=== PATIENT | male | born 1935 | race Caucasian/White ===

== ENCOUNTER 2016-10-28 15:02 | Inpatient (IN) ==
--- NOTE | 2016-10-28 15:06 | Emergency Department Note ---
Disposition Clinical Impression: Community acquired pneumonia Disposition: Admitted As Inpatient Referrals: Rodrick Vázquez MD [Primary Care Provider] - Forms: ED Satisfaction Letter SOB HPI - General Chief Complaint: ED Shortness of Breath/Dyspnea Stated Complaint: shortness of breath Time Seen by Provider: 10/28/16 15:05 Source: patient, family, EMS Mode of arrival: EMS Nursing Notes Reviewed: Yes Vital Signs Reviewed: Yes - History of Present Illness Pt Subjective Complaint: shortness of breath, cough Onset (ago): day(s) (4) Context: recent illness Severity: mild Consistency/Duration: intermittent, gradually worsening Worsens with: nothing Known history of: COPD, recurrent pneumonia Associated symptoms: Reports: nausea/vomiting Treatment prior to arrival: none Cough present: Yes Cough Description: Voluntary Cough Frequency: Intermittent Sputum production: Yes Sputum Amount: Scant - Related Data Home Medications Medication Instructions Recorded Confirmed Aspirin [Adult Low Dose Aspirin EC] 81 mg PO DAILY 10/16/15 08/09/16 Atorvastatin [Lipitor] 40 mg PO HS 10/16/15 08/09/16 Insulin Glargine,Hum.rec.anlog 10 unit SQ HS 04/13/16 08/09/16 [Lantus Solostar] Gabapentin [Neurontin] 300 mg PO TID 06/12/16 08/09/16 Insulin ASPART [Novolog Flexpen] 5 - 10 unit SQ TIDAC 06/12/16 08/09/16 Lisinopril 2.5 mg PO DAILY 06/12/16 08/09/16 Meclizine HCl [Verticalm] 25 mg PO TID PRN 06/12/16 08/09/16 Omeprazole [PriLOSEC] 20 mg PO DAILY 06/12/16 08/09/16 Carvedilol 3.125 mg PO BID 08/09/16 08/09/16 Metformin [Glucophage] 1,000 mg PO BIDWM 08/09/16 08/09/16 Previous Rx's Medication Instructions Recorded Clopidogrel [Plavix] 75 mg PO DAILY #30 tablet 04/18/16 Benzonatate [Tessalon] 200 mg PO TID PRN #0 capsule 06/20/16 GuaiFENesin ER [Mucinex] 600 mg PO BID tbbp.12hr 06/20/16 Insulin DETEMIR [Levemir] 10 unit SQ HS [id number] 06/20/16 Ipratropium/Albuterol Neb [Duoneb] 3 ml IH QIDR inhsol 06/20/16 Polyethylene Glycol 3350 [MiraLAX] 17 gm PO DAILY powd.pack 06/20/16 Clindamycin [Cleocin] 300 mg PO Q8HR #0 capsule 08/19/16 Nystatin POWDER [Nystop] 1 appl TP TID bottle 08/19/16 Peg 3350/Na Sulf,Bicarb,Cl/KCl 4,000 ml PO ONCE #1 soln.recon 10/17/16 [Golytely Solution] Sennosides [Senna] 8.6 mg PO BID #14 tablet 10/17/16 Allergies Allergy/AdvReac Type Severity Reaction Status Date / Time Sulfa (Sulfonamide Allergy Rash Verified 04/13/16 10:53 Antibiotics) All systems ED: reviewed and negative except as stated. Constitutional: Reports: weakness Gastrointestinal: Reports: nausea Past Medical History - Past Medical History Source: patient, old records reviewed, obtained from family (son in law), nursing notes reviewed Medical history: Reports: arthritis, cancer, cardiomyopathy, CHF, COPD, coronary artery disease, CVA, diabetes, GERD, hyperlipidemia, hypertension, malignancy, myocardial infarction, osteoporosis, peripheral artery disease, renal disease, TIA, valvular heart disease, other Surgical history: Reports: angioplasty/stent, cancer surgery, coronary bypass ( CABG), orthopedic, other, ureteral stent, other Psychiatric history: Reports: anxiety, depression, other - Social History Smoking Status: Former smoker Smokeless Tobacco Status: No Alcohol use: Reports: none Drug use: Reports: none Physical Exam - General Limitations: physical limitation General appearance: alert, other (very frail appearing) - Head Head exam: atraumatic, normocephalic, normal inspection - Eye Eye exam: Present: normal appearance, PERRL, EOMI - ENT ENT exam: normal exam, normal oropharynx, mucous membranes moist - Neck Neck exam: Present: normal inspection, full ROM, trachea midline - Chest Chest inspection: Present: normal inspection, symmetric chest wall rise - Respiratory Respiratory exam: Present: prolonged expiratory phase (Mild rhonchi with cough) . Absent: accessory muscle use - Cardiovascular Cardiovascular exam: Present: regular rate, normal rhythm, normal heart sounds - Abdominal Exam Abdominal exam: Present: soft, Non-Tender. Absent: tenderness, distention, guarding, rebound, rigidity Course Vital Signs Temperature 99.2 F 10/28/16 15:27 Pulse Rate 107 10/28/16 15:27 Respiratory Rate 20 10/28/16 15:27 Blood Pressure 132/104 10/28/16 15:27 O2 Sat by Pulse Oximetry 95 10/28/16 15:27 Temperature 99.2 F 10/28/16 15:27 Pulse Rate 107 10/28/16 15:27 Respiratory Rate 20 10/28/16 15:50 Blood Pressure 132/104 10/28/16 15:27 O2 Sat by Pulse Oximetry 95 10/28/16 15:50 Oxygen Delivery Oxygen Delivery Room Air Shortness of Breath/Dyspnea - Differential Diagnosis Likely: acute exacerbation of chronic obstructive airways disease, congestive heart failure, pneumonia, asthma with exacerbation, pulmonary embolism - Medical Records Medical records reviewed: Yes I reviewed the patient's medical records. - Lab Data Lab results reviewed: Yes I reviewed the patient's lab results. Result diagrams: 10/28/16 15:20 10/28/16 15:20 Lab Results 10/28/16 10/28/16 10/28/16 Range/Units 15:20 15:20 15:20 WBC 15.5 H (4.3-11.1) K/mcL RBC 4.01 L (4.19-5.50) M/mcL Hgb 11.8 L (12.9-16.9) g/dL Hct 35.4 L (37.5-50.1) % MCV 88.3 (83.0-100.0) fL MCH 29.4 (28.0-33.3) pg MCHC 33.3 (31.6-35.5) g/dL RDW 14.8 H (11.5-14.5) % Plt Count 415 H (140-400) K/mcL MPV 10.7 (9.4-12.4) fL Immature Gran % 0.7 (0-4) % Seg Neutrophils % 84.7 % Lymphocytes % 5.0 % Monocytes % 4.8 % Eosinophils % 4.5 % Basophils % 0.3 % Neutrophils # 13.1 H (1.6-8.9) K/mcL Lymphocytes # 0.8 (0.6-4.6) K/mcL Monocytes # 0.7 (0.0-1.3) K/mcL Eosinophils # 0.7 H (0.0-0.6) K/mcL Basophils # 0.0 (0.0-0.2) K/mcL Sodium 136 (136-145) mEq/L Potassium 4.8 H (3.5-4.5) mEq/L Chloride 103 (98-109) mEq/L Carbon Dioxide 17 L (19-29) mEq/L BUN 41 H (8-26) mg/dL Creatinine 1.46 H (0.72-1.25) mg/dL Est GFR ( Amer) 56 L (> 60) Est GFR (Non-Af Amer) 46 L (> 60) BUN/Creatinine Ratio 28 H (6-26) Glucose 257 H (70-99) mg/dL Calculated Osmolality 301 H (280-300) Calcium 10.1 (8.6-10.8) mg/dL Troponin I 0.03 (0-0.03) ng/mL B-Natriuretic Peptide (0-100) pg/mL 10/28/16 Range/Units 15:20 WBC (4.3-11.1) K/mcL RBC (4.19-5.50) M/mcL Hgb (12.9-16.9) g/dL Hct (37.5-50.1) % MCV (83.0-100.0) fL MCH (28.0-33.3) pg MCHC (31.6-35.5) g/dL RDW (11.5-14.5) % Plt Count (140-400) K/mcL MPV (9.4-12.4) fL Immature Gran % (0-4) % Seg Neutrophils % % Lymphocytes % % Monocytes % % Eosinophils % % Basophils % % Neutrophils # (1.6-8.9) K/mcL Lymphocytes # (0.6-4.6) K/mcL Monocytes # (0.0-1.3) K/mcL Eosinophils # (0.0-0.6) K/mcL Basophils # (0.0-0.2) K/mcL Sodium (136-145) mEq/L Potassium (3.5-4.5) mEq/L Chloride (98-109) mEq/L Carbon Dioxide (19-29) mEq/L BUN (8-26) mg/dL Creatinine (0.72-1.25) mg/dL Est GFR ( Amer) (> 60) Est GFR (Non-Af Amer) (> 60) BUN/Creatinine Ratio (6-26) Glucose (70-99) mg/dL Calculated Osmolality (280-300) Calcium (8.6-10.8) mg/dL Troponin I (0-0.03) ng/mL B-Natriuretic Peptide 163 H (0-100) pg/mL - Radiology Data Radiology results reviewed: Yes I reviewed the patient's radiology results. - EKG Data EKG attestation: Yes I reviewed and interpreted this EKG. EKG shows normal: Reports: sinus rhythm Rate: Reports: tachycardia (100) Rhythm: Reports: NSR, PVC's Heart block present: Reports: 1st Degree
[2016-10-28 15:30] LABS: Basophils % 0.3 %; Eosinophils # 0.7 K/mcL (0.0-0.6); Eosinophils % 4.5 %; Hematocrit 35.4 % (37.5-50.1); Hemoglobin 11.8 g/dL (12.9-16.9); Immature Granulocytes % 0.7 % (0-4); Lymphocytes # 0.8 K/mcL (0.6-4.6); Mean Corpuscular HGB Conc 33.3 g/dL (31.6-35.5); Mean Corpuscular Hemoglobin 29.4 pg (28.0-33.3); Mean Corpuscular Volume 88.3 fL (83.0-100.0); Mean Platelet Volume 10.7 fL (9.4-12.4); Monocytes # 0.7 K/mcL (0.0-1.3); Monocytes % 4.8 %; Neutrophils # 13.1 K/mcL (1.6-8.9); Platelet Count 415 K/mcL (140-400); Red Blood Count 4.01 M/mcL (4.19-5.50); Red Cell Distribution Width 14.8 % (11.5-14.5); Segmented Neutrophils % 84.7 %
[2016-10-28] MEDS ORDERED: Ondansetron 4 MG/2 ML VIAL IVP ONE (15:31)
[2016-10-28] MEDS ORDERED: Ipratropium/Albuterol Neb 3 ML IH ONE (15:31)
[2016-10-28 15:43] LABS: Calcium 10.1 mg/dL (8.6-10.8); Potassium 4.8 mEq/L (3.5-4.5)
[2016-10-28] MEDS ORDERED: Levofloxacin 750 MG/150 ML 750 MG/150 ML BAG IVPB ONE (16:12)
[2016-10-28] MEDS ORDERED: 0.9 % Sodium Chloride 1,000 ML IVC ONE (16:17)
[2016-10-28] MEDS ORDERED: 0.9 % Sodium Chloride 500 ML IVC ONE (17:12)
[2016-10-28] MEDS ORDERED: Naloxone 0.4 MG/ML INJ IVP PRN (21:49)
[2016-10-28] MEDS ORDERED: Ondansetron 4 MG/2 ML VIAL IVP PRN (21:49)
[2016-10-28] MEDS ORDERED: Albuterol 2.5 MG/3 ML NEBULIZER IH PRN (21:54)
[2016-10-28] MEDS ORDERED: Benzonatate 100 MG CAPSULE PO PRN (21:57)
[2016-10-28] MEDS ORDERED: Gabapentin 300 MG CAPSULE PO PRN (21:57)
--- NOTE | 2016-10-28 22:01 | Internal Med History&Physical ---
<Katie Campuzano - Last Filed: 10/29/16 00:40> Date of Encounter: 10/29/16 Time of Encounter: 21:00 Assessment and Plan (1) Sepsis Current visit: No Status: Acute 1 patient's been experiencing cough and shortness of breath for 4 days. He presented to the ER with tachycardic or low-grade temperature WBCs 15.5 Pneumonia on chest x-ray. Will obtain UA as well. Cultures obtained patient given 1500 of IV fluids in the ER 2 continue with gentle IV hydration overnight 3 obtain sputum culture 4 patient is a past history of MRSA in sputum will continue with Levaquin and vancomycin Qualifiers: Sepsis type: sepsis due to unspecified organism Qualified Code(s): A41.9 - Sepsis, unspecified organism (2) HAP (hospital-acquired pneumonia) Current visit: No Status: Acute 1 patient has had frequent episodes of pneumonia with hospitalizations. He presents with shortness of breath and SPO2 92% requiring oxygen. He has a recent history of positive sputum culture MRSA. Blood cultures are obtained we will obtain sputum cultures. Continue with Levaquin and vancomycin 2 continue with oxygen maintain SPO2 greater than 90% 3 bronchodilators as needed 4 continue with expectorants (3) Failure to thrive Current visit: Yes Status: Acute 1 patient appears frail deconditioned cachectic. Has poor appetite. We will consult dietary for supplementary recommendation 2 we will give gentle IV fluids overnight Qualifiers: Failure to thrive age range: in adult Qualified Code(s): R62.7 - Adult failure to thrive (4) Chronic systolic heart failure Current visit: No Status: Chronic 1 patient has history of systolic heart failure with EF 25%. No vascular congestion on x-ray-we will monitor for signs and symptoms of fluid overload 2 daily weights and monitor intake and output 3 low sodium diet (5) Coronary artery disease Current visit: No Status: Chronic 1Denies any chest pain continue with aspirin and lisinopril statin beta margarita 2 cardiac diet Qualifiers: Coronary Disease-Associated Artery/Lesion type: [place] artery [place] vs. transplanted heart: [place] heart Associated angina: without angina Qualified Code(s): I25.10 - Atherosclerotic heart disease of [place] coronary artery without angina pectoris (6) Diabetes mellitus Current visit: No Status: Chronic 1. According to family patients has not been taking his basal insulin due to poor oral intake. We will hold oral antibiotics for now. Accu-Cheks before meals and at bedtime with sliding scale insulin Qualifiers: Diabetes mellitus type: type 2 Diabetes mellitus complication status: with hyperglycemia Diabetes mellitus terminal system operator insulin use: with skilled nursing use Qualified Code(s): E11.65 - Type 2 diabetes mellitus with hyperglycemia; Z79.4 - buttermaker (current) use of insulin (7) History of urostomy Current visit: No Status: Chronic 1 patient has urostomy secondary to bladder cancer. We will obtain the urinalysis (8) Acute kidney injury superimposed on chronic kidney disease Current visit: No Status: Acute 1 patient has history of Ckd3. Creatinine seems to be 1-1.3 He appears his creatinine is slightly elevated 1.46 patient's intake will continue to monitor creatinine 2 GENTLE IV FLUID OVERNIGHT 3. Intake and output daily weights 4 avoid nephrotoxins renal dose antibiotics (9) DVT prophylaxis Current visit: No Status: Acute [facility] Internal Medicine - H&P: HPI Chief complaint: Cough, SOB Admitted From: Emergency Dept History of present illness: Mr. Herron is a 81 year old male past medical history of systolic heart failure CABG bladder cancer with urostomy hypertension diabetes COPD recurrent pneumonia renal disease TIAs. Currently the patient has been experiencing fatigue a cough with shortness of breath for approximately 4 days. He has had positive stress of pneumonia with most recent hospitalization in August that time he did have MRSA in his sputum. Patient denies any chest pain fevers chills nausea vomiting or diarrhea. He does report anorexia. Is brought to the ER for further workup and evaluation. Cardiovascular records lab work did reveal elevated white count 15.5 potassium is 4.8 creatinine 1.46 bicarbonate 17. Chest x-ray revealed patchy ACDs and retrocardiac left bases atelectasis or pneumonia which is new from prior x-ray. Patient's vital signs he was tachycardic heart rate of 104 low-grade temperature of 99.2 oxygen saturation 95 % howeverSPO2 drop 92%on 2 L nasal cannula Blood cultures were obtained patient was initiated Levaquin. He was admitted for further workup and evaluation. Upon assessment patient appears cachectic weak and frail. He does not appear to be in any respiratory distress at this time denies any chest pain or shortness of breath. Upon auscultation his lungs sounds are diminished he is hemodynamically stable at this time I reviewed this case with who agrees with plan Past Med Surg Social Fam HX - Past Medical History Medical history: arthritis, cancer, cardiomyopathy, CHF, COPD, coronary artery disease, CVA, diabetes, GERD, hyperlipidemia, hypertension, malignancy, myocardial infarction, osteoporosis, peripheral artery disease, renal disease, TIA, valvular heart disease, other Psychiatric history: anxiety, depression, other - Past Surgical History Surgical History: angioplasty/stent, cancer surgery, coronary bypass (CABG), orthopedic, other, ureteral stent, other - Social History Smoking Status: Former smoker Smokeless Tobacco Status: No Alcohol use: none Drug use: none - Family History Mother Family Member Ethnicity: Non- Living Status: Hx Family Cardiac Disorders: No Hx Family Respiratory Disorders: No Hx Family Cancer: No Hx Family GI Disorders: No Hx Family Endocrine Disorder: No Hx Family Neuromuscular Disorders: No Hx Family Neurologic Disorders: No Hx Family HEENT Disorders: No Hx Family Autoimmune Disorders: No Father Family Member Ethnicity: Non- Living Status: Hx Family Cardiac Disorders: Yes Hx Family Respiratory Disorders: No Hx Family Cancer: No Hx Family GI Disorders: No Hx Family Endocrine Disorder: No Hx Family Neuromuscular Disorders: No Hx Family Neurologic Disorders: No Hx Family HEENT Disorders: No Hx Family Autoimmune Disorders: No Internal Medicine - H&P: Meds Aspirin [Adult Low Dose Aspirin EC] 81 mg PO DAILY 10/16/15 [History] Atorvastatin [Lipitor] 40 mg PO HS 10/16/15 [History] Clopidogrel [Plavix] 75 mg PO DAILY #30 tablet 04/18/16 [Rx] Gabapentin [Neurontin] 300 mg PO TID PRN 06/12/16 [History] Insulin ASPART [Novolog Flexpen] 5 - 10 unit SQ TIDAC 06/12/16 [History] Lisinopril 2.5 mg PO DAILY 06/12/16 [History] Meclizine HCl [Verticalm] 25 mg PO TID PRN 06/12/16 [History] Omeprazole [PriLOSEC] 20 mg PO DAILY 06/12/16 [History] Benzonatate [Tessalon] 200 mg PO TID PRN #0 capsule 06/20/16 [Rx] Insulin DETEMIR [Levemir] 10 unit SQ HS [id number] 06/20/16 [Rx] Carvedilol 3.125 mg PO BID 08/09/16 [History] Metformin [Glucophage] 1,000 mg PO BIDWM 08/09/16 [History] GuaiFENesin ER [Mucinex] 600 mg PO BID PRN 10/28/16 [History] Polyethylene Glycol 3350 [MiraLAX] 17 gm PO DAILY PRN 10/28/16 [History] Promethazine [Phenergan] 25 mg PO Q8HR PRN 10/28/16 [History] Allergies Sulfa (Sulfonamide Antibiotics) Allergy (Verified 04/13/16 10:53) Rash All Systems PM: A 10-system review of systems was performed and is negative for pertinent findings except as documented above in the HPI. - Constitutional Constitutional: anorexia, fatigue, weight loss - Cardiovascular Cardiovascular ROS IM: no chest pain, no diaphoresis, no dyspnea, no lightheadedness, no palpitations, no syncope - Respiratory Respiratory: cough, dyspnea on exertion - Gastrointestinal Gastrointestinal: no abdominal pain, no diarrhea, no hematemesis, no hematochezia, no melena, no nausea, no vomiting - Musculoskeletal Musculoskeletal ROS IM: no numbness, no tingling - Neurological Neurological ROS: no confusion, no convulsions, no focal weakness, no numbness, no tingling, no tremor(s) - Constitutional Vitals: Temp Pulse Resp BP Pulse Ox 98.2 F 104 18 126/76 92 L 10/28/16 19:54 10/28/16 19:54 10/28/16 19:54 10/28/16 19:54 10/28/16 19:54 General appearance: Present: cachectic, A&O X 3, underweight - Head Head exam: Present: atraumatic, normocephalic - Neck Neck exam general surgery: Present: supple, trachea midline. Absent: lymphadenopathy - Respiratory Respiratory exam: Present: decreased breath sounds, CTAB. Absent: accessory muscle use, rales, rhonchi, wheezes - Cardiovascular Cardiovascular exam: Present: RRR, +S1, +S2. Absent: diastolic murmur, gallop, rubs, systolic murmur - GI/Abdominal GI/Abdominal exam: Present: normal bowel sounds, soft, no peritoneal signs. Absent: distended, tenderness - Extremities Exam Extremities exam: Present: warm, radial pulses palpable and symetrical. Absent : calf tenderness, cyanotic, pedal edema - Neurological Exam Neurological exam: Present: CN II-XII intact, oriented X3, no focal deficits. Absent: pronater drift, facial droop, speech deficit - Skin Skin exam: Present: dry, intact Internal Med - H&P Results - Labs CBC & Chem 7: 10/28/16 15:20 10/28/16 15:20 - EKG Data EKG comments: 10/29/16 00:16 - Diagnostic Studies Chest x-ray Additional comments: Per radiology read patchy opacty in the retrocardiac left base atelectasis or pneumonia which is new from prior exam no pleural effusion or pneumothorax noted <Kendra Taylor - Last Filed: 10/29/16 03:12> Date of Encounter: 10/28/16 Internal Medicine - H&P: HPI History of present illness: Mr. Herron is a 81 year old male All Systems PM: A 10-system review of systems was performed and is negative for pertinent findings except as documented above in the HPI. - Constitutional Vitals: Temp Pulse Resp BP Pulse Ox 98.0 F 76 18 103/61 94 L 10/28/16 23:57 10/28/16 23:57 10/28/16 23:57 10/28/16 23:57 10/28/16 23:57 Internal Med - H&P Results - Labs CBC & Chem 7: 10/28/16 15:20 10/28/16 15:20 - Attending Attestation I examined this patient and my medical decision-making was reviewed with the WANIGAN CLERK/ Advanced Practice Nurse. I agree with the documented findings, disposition and treatment plan as described except to the extent set forth below. 81-year-old male with the past medical history significant for CHF with EF of 25 %, CAD/CABG, Prior pneumonia with the sputum cultures positive for MRSA. Admitted with fatigue, cough with shortness of breath for approximately 4 days. Chest x-ray showed patchy opacity in the intracardiac left base. He has leukocytosis and tachycardia. Patient was given levofloxacin under 1.5 L of normal saline in the emergency department. O/E: Few basal crackles heard. He has contractures of the left hand. Not co- opertive for neurological exam. A/P: - Bacterial pneumonia/HC ap/aspiration pneumonia: Patient recently had MRSA in the sputum. We will cover him with vancomycin and Zosyn. Sputum cultures. - Sepsis: Likely secondary to pneumonia. Patient received IV fluids. Lactate is 1.3. Continue with antibiotics. Request a speech therapy consult to evaluate for dysphagia/aspiration.
[2016-10-28] MEDS: Ipratropium/Albuterol Neb 3 ML IH SCH (22:37)
[2016-10-28] MEDS: 0.9 % Sodium Chloride 1,000 ML IVC SCH (23:43)
[2016-10-28] MEDS ORDERED: Vancomycin (wt based) 1,000 MG VIAL IVPB SCH (23:45)
[2016-10-29] MEDS: Vancomycin 1,000 MG in D5% in Water 250 ML IVPB SCH (01:17)
[2016-10-29] MEDS ORDERED: Piperacillin/Tazobactam 3.375 GM in D5% in Water (Mini-Bag+) 100 ML IVPB SCH (03:00)
[2016-10-29] MEDS: Ipratropium/Albuterol Neb 3 ML IH SCH ×4 (04:13→22:05)
[2016-10-29] MEDS: *HR* Enoxaparin 40 MG/0.4 ML SYRINGE SQ SCH (05:39)
[2016-10-29] MEDS ORDERED: Pantoprazole 40 MG VIAL IVP SCH (06:30)
[2016-10-29 07:03] LABS: BUN/Creatinine Ratio 31 (6-26); Blood Urea Nitrogen 42 mg/dL (8-26); Calcium 8.8 mg/dL (8.6-10.8); Carbon Dioxide 18 mEq/L (19-29); Chloride 103 mEq/L (98-109); Glucose 319 mg/dL (70-99); Magnesium 1.6 mg/dL (1.6-2.6); Osmolality,Calculated 297 (280-300); Potassium 4.6 mEq/L (3.5-4.5); Sodium 132 mEq/L (136-145); eGFR For African Americans > 60 (> 60); eGFR For Non-African Americans 50 (> 60)
[2016-10-29 07:12] LABS: Basophils % 0.2 %; Eosinophils # 0.4 K/mcL (0.0-0.6); Eosinophils % 2.7 %; Hematocrit 29.9 % (37.5-50.1); Immature Granulocytes % 0.9 % (0-4); Lymphocytes # 0.9 K/mcL (0.6-4.6); Lymphocytes % 6.9 %; Mean Corpuscular HGB Conc 31.8 g/dL (31.6-35.5); Mean Corpuscular Hemoglobin 28.2 pg (28.0-33.3); Mean Corpuscular Volume 88.7 fL (83.0-100.0); Mean Platelet Volume 10.5 fL (9.4-12.4); Monocytes # 0.8 K/mcL (0.0-1.3); Monocytes % 6.1 %; Neutrophils # 11.1 K/mcL (1.6-8.9); Platelet Count 332 K/mcL (140-400); Red Blood Count 3.37 M/mcL (4.19-5.50); Red Cell Distribution Width 14.8 % (11.5-14.5); Segmented Neutrophils % 83.2 %
[2016-10-29 07:13] LABS: Hemoglobin 9.5 g/dL (12.9-16.9)
[2016-10-29] MEDS: Aspirin Enteric Coated 81 MG Tablet PO SCH (08:22)
[2016-10-29] MEDS: Lactobacillus 1 EACH CAP.SPRINK PO SCH ×2 (08:22→21:27)
[2016-10-29] MEDS ORDERED: Dextrose Gel 15 GM PO PRN ×2 (08:27)
[2016-10-29] MEDS ORDERED: *HR* Dextrose 50 % in Water (Syg) 50 ML SYRINGE IVP PRN (08:27)
[2016-10-29] MEDS ORDERED: D5% in Water 1,000 ML IV PRN (08:27)
[2016-10-29] MEDS ORDERED: Insulin LISPRO 300 UNITS/3 ML VIAL SQ ONE (08:33)
--- NOTE | 2016-10-29 08:55 | Internal Med Progress Note ---
Date of Encounter: 10/29/16 Time of Encounter: 08:52 - Assessment and plan (1) Healthcare associated bacterial pneumonia Current Visit: No Status: Acute Assessment and plan: Metabolic encephalopathy secondary to healthcare associated pneumonia present upon admission history of MRSA in sputum Chest x-ray shows a retrocardiac opacity. Continue vancomycin day 2, stop Zosyn and start cefepime to decreased risk of renal failure Order urinalyses, the patient grew VRE in urine in the past and has a urostomy bag now. The area was sensitive to ampicillin, consider starting ampicillin or gentamicin if worse, was also sensitive to nitrofurantoin Speech pathology evaluation ordered for possible aspiration High risk due to sepsis History of diabetes type 2 insulin-dependent, CAD/CABG 3, CKD3, multiple CVAs TIAs, history of bladder carcinoma, indwelling suprapubic catheter and now has a urostomy bag, chronic recurrent urinary tract infections, chronic systolic CHF with an ejection fraction less than 25% (2) Generalized weakness Current Visit: No Status: Acute (3) Sepsis Current Visit: No Status: Acute Qualifiers: Sepsis type: sepsis due to unspecified organism Qualified Code(s): A41.9 - Sepsis, unspecified organism (4) Chronic systolic heart failure Current Visit: No Status: Chronic Assessment and plan: Hold Lasix for now due to dehydration (5) Diabetes mellitus Current Visit: No Status: Chronic Assessment and plan: Order insulin sliding scale Qualifiers: Diabetes mellitus type: type 2 Diabetes mellitus complication status: with hyperglycemia Diabetes mellitus retirement insulin use: with retirement use Qualified Code(s): E11.65 - Type 2 diabetes mellitus with hyperglycemia; Z79.4 - half-way (current) use of insulin (6) History of CVA (cerebrovascular accident) Current Visit: No Status: Chronic Assessment and plan: Continue aspirin (7) History of coronary artery bypass graft Current Visit: No Status: Chronic Assessment and plan: Continue Coreg, Lipitor and aspirin (8) History of urostomy Current Visit: No Status: Chronic - Time Spent With Patient Greater than 35 minutes - Subjective Interval history: The patient is disoriented in time, very confused, lethargic. Was able to communicate that he is not having any chest pain, no diarrhea, on the contrary he has been constipated. Complaining of abdominal pain. Urine analysis has not been sent yet. Feels slightly short of breath, no fevers quantified - Constitutional Vitals: Temp Pulse Resp BP Pulse Ox 98.0 F 77 20 116/66 90 L 10/29/16 07:43 10/29/16 07:43 10/29/16 07:43 10/29/16 07:43 10/29/16 07:43 General appearance: Present: cachectic, A&O X 2, underweight - Head Head exam: Present: atraumatic, normocephalic - Eye Eye exam: Present: PERRL, conjuntiva pink, sclera anicteric Pupils: Present: PERRL - Neck Neck exam general surgery: Present: supple, trachea midline. Absent: lymphadenopathy - Respiratory Respiratory exam: Present: decreased breath sounds, CTAB, rales (Bibasilar crackles). Absent: accessory muscle use, rhonchi, wheezes - Cardiovascular Cardiovascular exam: Present: RRR, +S1, +S2. Absent: diastolic murmur, gallop, rubs, systolic murmur - GI/Abdominal GI/Abdominal exam: Present: distended (Urostomy bag located on the right lower quadrant), normal bowel sounds, soft, no peritoneal signs. Absent: tenderness - Extremities Exam Extremities exam: Present: warm, radial pulses palpable and symetrical. Absent : calf tenderness, cyanotic, pedal edema - Neurological Exam Neurological exam: Present: CN II-XII intact, no focal deficits. Absent: oriented X3, pronater drift, facial droop, speech deficit Additional comments: Generalized weakness - Skin Skin exam: Present: dry, intact Internal Medicine: Result - Labs CBC & Chem 7: 10/29/16 06:19 10/29/16 06:19 Labs: Short CBC 10/29/16 Range/Units 06:19 WBC 13.3 H (4.3-11.1) K/mcL Hgb 9.5 L D (12.9-16.9) g/dL Hct 29.9 L (37.5-50.1) % Plt Count 332 (140-400) K/mcL Neutrophils # 11.1 H (1.6-8.9) K/mcL BMP 10/29/16 06:19 Sodium 132 L Potassium 4.6 H Chloride 103 Carbon Dioxide 18 L BUN 42 H Creatinine 1.36 H Glucose 319 H Calcium 8.8 Consult Discharge Plan - Plan Referrals: Rodrick Vázquez MD [Primary Care Provider] -
[2016-10-29] MEDS ORDERED: Levofloxacin 750 MG/150 ML 750 MG/150 ML BAG IVPB SCH (09:00)
[2016-10-29] MEDS: Insulin LISPRO 300 UNITS/3 ML VIAL SQ SCH ×4 (09:07→21:27)
[2016-10-29 09:20] LABS: Bilirubin,Urine Negative (Negative); Blood,Urine Negative (Negative); Clarity,Urine Turbid (Clear); Color,Urine Yellow (Yellow); Glucose,Urine (UA) 100 mg/dL (Normal); Ketones,Urine Negative (Negative); Leukocyte Esterase,Urine Small (Negative); Nitrite,Urine Negative (Negative); PH,Urine 8.5 pH Units (5.0-8.0); Protein,Urine >=300 mg/dL (Neg-Trace); Specific Gravity,Urine 1.017 (1.010-1.025); Urobilinogen,Urine Normal (Normal)
[2016-10-29 09:23] LABS: Bacteria,Urine Many per hpf (None-Few); Squamous Epithelial Cell,Urine Many per lpf (None-Few); WBC,Urine 50-100 per hpf (0-3)
[2016-10-29 09:33] LABS: RBC,Urine 0-3 per hpf (0-3)
[2016-10-29 09:34] LABS: Hyaline Casts,Urine None Seen per lpf (None-Few)
[2016-10-29 09:43] LABS: Triple Phosphate Crystal,Urine Present
[2016-10-29 09:44] LABS: Other Crystals,Urine Present
[2016-10-29] MEDS ORDERED: Insulin LISPRO 300 UNITS/3 ML VIAL SQ SCH (11:30)
--- NOTE | 2016-10-29 16:20 | Electrocardiograph Report ---
[address] [address] Test Date: 2016-10-28 Pat Name: Jonatan Herron Department: 105 Room: 2A24 Gender: M Asphalt Worker: : 1935 Requested By: Bruce Rosas Order Number: [id number] Reading MD: Abner Luo Measurements Intervals [place] Rate: 110 P: 116 [place]: 248 QRS: -16 QRSD: 123 T: 52 QT: 333 QTc: 398 Interpretive Statements SINUS TACHYCARDIA WITH FIRST DEGREE AV BLOCK WITH OCCASIONAL VENTRICULAR PREMATURE COMPLEXES RIGHT BUNDLE BRANCH BLOCK Electronically Signed On 10-29-2016 16:18:26 EST by Abner Luo
[2016-10-29] MEDS: Cefepime HCl 1,000 MG in D5% in Water (Mini-Bag+) 100 ML IVPB SCH (17:14)
[2016-10-29] MEDS: 0.9 % Sodium Chloride 1,000 ML IVC SCH (18:49)
[2016-10-29] MEDS: Gabapentin 100 MG CAPSULE PO SCH (21:27)
[2016-10-29 21:39] LABS: Enterococcus by PCR Not Detected (Not Detect); blaKPC Carbapenem-Resist Gene Not Detected (Not Detect); mecA Methicillin-Resist Gene ***DETECTED*** (Not Detect); vanA/B Vancomycin-Resist Genes Not Detected (Not Detect)
[2016-10-29 21:40] LABS: Acinetobacter baumannii by PCR Not Detected (Not Detect); Candida albicans by PCR Not Detected (Not Detect); Candida glabrata by PCR Not Detected (Not Detect); Candida krusei by PCR Not Detected (Not Detect); Candida parapsilosis by PCR Not Detected (Not Detect); Candida tropicalis by PCR Not Detected (Not Detect); Escherichia coli by PCR Not Detected (Not Detect); Klebsiella oxytoca by PCR Not Detected (Not Detect); Klebsiella pneumoniae by PCR Not Detected (Not Detect); Pseudomonas aeruginosa by PCR Not Detected (Not Detect); Serratia marcescens by PCR Not Detected (Not Detect); Staphylococcus aureus by PCR Not Detected (Not Detect); Streptococcus agalactiae(B)PCR Not Detected (Not Detect); Streptococcus by PCR Not Detected (Not Detect); Streptococcus pneumoniae PCR Not Detected (Not Detect); Streptococcus pyogenes (A) PCR Not Detected (Not Detect)
[2016-10-30] MEDS: Vancomycin 1,000 MG in D5% in Water 250 ML IVPB SCH (00:25)
[2016-10-30] MEDS ORDERED: Ipratropium/Albuterol Neb 3 ML ONE (04:55)
[2016-10-30] MEDS: Ipratropium/Albuterol Neb 3 ML IH SCH ×5 (04:57→22:39)
[2016-10-30] MEDS: *HR* Enoxaparin 40 MG/0.4 ML SYRINGE SQ SCH (06:12)
[2016-10-30] MEDS: Cefepime HCl 1,000 MG in D5% in Water (Mini-Bag+) 100 ML IVPB SCH ×2 (06:13→17:10)
[2016-10-30 07:12] LABS: Hematocrit 25.9 % (37.5-50.1); Hemoglobin 8.4 g/dL (12.9-16.9); Mean Corpuscular HGB Conc 32.4 g/dL (31.6-35.5); Mean Corpuscular Hemoglobin 28.5 pg (28.0-33.3); Mean Corpuscular Volume 87.8 fL (83.0-100.0); Mean Platelet Volume 10.5 fL (9.4-12.4); Platelet Count 305 K/mcL (140-400); Red Blood Count 2.95 M/mcL (4.19-5.50); Red Cell Distribution Width 14.8 % (11.5-14.5)
[2016-10-30 07:24] LABS: BUN/Creatinine Ratio 32 (6-26); Blood Urea Nitrogen 38 mg/dL (8-26); Calcium 8.3 mg/dL (8.6-10.8); Carbon Dioxide 17 mEq/L (19-29); Chloride 107 mEq/L (98-109); Glucose 227 mg/dL (70-99); Osmolality,Calculated 292 (280-300); Potassium 4.1 mEq/L (3.5-4.5); Sodium 133 mEq/L (136-145); eGFR For African Americans > 60 (> 60); eGFR For Non-African Americans 58 (> 60)
[2016-10-30] MEDS: Aspirin Enteric Coated 81 MG Tablet PO SCH (08:18)
[2016-10-30] MEDS: Lactobacillus 1 EACH CAP.SPRINK PO SCH ×2 (08:18→21:13)
[2016-10-30] MEDS: Gabapentin 100 MG CAPSULE PO SCH ×3 (08:18→21:13)
[2016-10-30] MEDS: Insulin LISPRO 300 UNITS/3 ML VIAL SQ SCH ×4 (08:19→21:05)
--- NOTE | 2016-10-30 08:31 | Internal Med Progress Note ---
Date of Encounter: 10/30/16 Time of Encounter: 08:30 - Assessment and plan (1) Healthcare associated bacterial pneumonia Current Visit: No Status: Acute Assessment and plan: Metabolic encephalopathy secondary to healthcare associated pneumonia present upon admission history of MRSA in sputum Chest x-ray shows a retrocardiac opacity. Continue vancomycin day 3, stopped Zosyn Continue cefepime day 2 (to decreased risk of renal failure) 1 out of 2 bottles of his blood cultures are growing possible MRSA, unlikely bacteremia, possible contamination of the blood culture. 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 The area was sensitive to ampicillin, consider starting ampicillin or gentamicin if worse, was also sensitive to nitrofurantoin Current urine culture shows mixed lenny unable to identify. Speech pathology evaluation High risk due to sepsis History of diabetes type 2 insulin-dependent, CAD/CABG 3, CKD3, multiple CVAs TIAs, history of bladder carcinoma, indwelling suprapubic catheter and now has a urostomy bag, chronic recurrent urinary tract infections, chronic systolic CHF with an ejection fraction less than 25% (2) Generalized weakness Current Visit: No Status: Acute (3) Sepsis Current Visit: No Status: Acute Qualifiers: Sepsis type: sepsis due to unspecified organism Qualified Code(s): A41.9 - Sepsis, unspecified organism (4) Chronic systolic heart failure Current Visit: No Status: Chronic Assessment and plan: Hold Lasix for now due to dehydration (5) Diabetes mellitus Current Visit: No Status: Chronic Assessment and plan: Order insulin sliding scale Qualifiers: Diabetes mellitus type: type 2 Diabetes mellitus complication status: with hyperglycemia Diabetes mellitus intermission coordinator insulin use: with skilled nursing use Qualified Code(s): E11.65 - Type 2 diabetes mellitus with hyperglycemia; Z79.4 - prison (current) use of insulin (6) History of CVA (cerebrovascular accident) Current Visit: No Status: Chronic Assessment and plan: Continue aspirin (7) History of coronary artery bypass graft Current Visit: No Status: Chronic Assessment and plan: Continue Coreg, Lipitor and aspirin (8) History of urostomy Current Visit: No Status: Chronic (9) Anemia Current Visit: Yes Status: Acute Assessment and plan: Acute anemia, consider possible acute blood loss Continue omeprazole, order Hemoccult, hold Lovenox for now Consider holding aspirin if blood loss verified Recheck CBC later today Qualifiers: Anemia type: other cause Other causes of anemia: other cause, not classified Qualified Code(s): D64.89 - Other specified anemias - Subjective Interval history: The patient is still disoriented in time, less confused, more awake. Was able to communicate that he is not having any chest pain, no diarrhea, on the contrary he has been constipated. Complaining of mild abdominal pain. Feels slightly short of breath, no fevers quantified - Constitutional Vitals: Temp Pulse Resp BP Pulse Ox 97.7 F 73 16 109/65 96 10/30/16 07:34 10/30/16 07:34 10/30/16 07:34 10/30/16 07:34 10/30/16 07:34 General appearance: Present: cachectic, A&O X 2, underweight - Head Head exam: Present: atraumatic, normocephalic - Eye Eye exam: Present: PERRL, conjuntiva pink, sclera anicteric Pupils: Present: PERRL - Neck Neck exam general surgery: Present: supple, trachea midline. Absent: lymphadenopathy - Respiratory Respiratory exam: Present: decreased breath sounds, CTAB. Absent: accessory muscle use, rales, rhonchi, wheezes - Cardiovascular Cardiovascular exam: Present: RRR, +S1, +S2. Absent: diastolic murmur, gallop, rubs, systolic murmur - GI/Abdominal GI/Abdominal exam: Present: normal bowel sounds, soft, no peritoneal signs. Absent: distended, tenderness Additional comments: Urostomy bag in place - Extremities Exam Extremities exam: Present: warm, radial pulses palpable and symetrical. Absent : calf tenderness, cyanotic, pedal edema - Neurological Exam Neurological exam: Present: CN II-XII intact, oriented X3, no focal deficits. Absent: pronater drift, facial droop, speech deficit - Skin Skin exam: Present: dry, intact Internal Medicine: Result - Labs CBC & Chem 7: 10/30/16 06:31 10/30/16 06:31 Labs: Short CBC 10/30/16 Range/Units 06:31 WBC 9.2 (4.3-11.1) K/mcL Hgb 8.4 L (12.9-16.9) g/dL Hct 25.9 L (37.5-50.1) % Plt Count 305 (140-400) K/mcL BMP 10/30/16 06:31 Sodium 133 L Potassium 4.1 Chloride 107 Carbon Dioxide 17 L BUN 38 H Creatinine 1.20 Glucose 227 H Calcium 8.3 L Urine 10/29/16 Range/Units 09:05 Urine Color Yellow (Yellow) Urine Clarity Turbid A (Clear) Urine pH 8.5 H (5.0-8.0) pH Units Ur Specific [place] 1.017 (1.010-1.025) Urine Protein >=300 H (Neg-Trace) mg/dL Urine Glucose (UA) 100 H (Normal) mg/dL Consult Discharge Plan - Plan Referrals: Rodrick Vázquez MD [Primary Care Provider] - 11/05/16 2:45 pm ()
[2016-10-30 09:57] LABS: Bilirubin,Urine Negative (Negative); Blood,Urine Negative (Negative); Clarity,Urine Turbid (Clear); Color,Urine Yellow (Yellow); Glucose,Urine (UA) Normal (Normal); Ketones,Urine Negative (Negative); Leukocyte Esterase,Urine Moderate (Negative); Nitrite,Urine Negative (Negative); Protein,Urine 30 mg/dL (Neg-Trace); Specific Gravity,Urine 1.014 (1.010-1.025); Urobilinogen,Urine Normal (Normal)
[2016-10-30 10:07] LABS: Granular Casts,Urine Few per lpf (None Seen); Mucus,Urine Few (Few)
[2016-10-30 10:08] LABS: Amorphous Sediment,Urine Few (Few); Bacteria,Urine Many per hpf (None-Few); RBC,Urine 0-3 per hpf (0-3); Renal Epithelial Cells,Urine Few per hpf (None-Few); Squamous Epithelial Cell,Urine Few per lpf (None-Few); WBC,Urine 30-50 per hpf (0-3); Yeast,Urine Moderate per hpf (None Seen)
[2016-10-30 15:25] LABS: Hematocrit 26.4 % (37.5-50.1); Hemoglobin 8.6 g/dL (12.9-16.9)
[2016-10-30] MEDS: 0.9 % Sodium Chloride 1,000 ML IVC SCH (17:09)
[2016-10-30] MEDS: Insulin DETEMIR 100 UNIT/ML X5UNITS SQ SCH (21:13)
[2016-10-31] MEDS: Vancomycin 1,000 MG in D5% in Water 250 ML IVPB SCH ×2 (00:48→23:51)
[2016-10-31] MEDS: Ipratropium/Albuterol Neb 3 ML IH SCH ×3 (04:11→16:12)
[2016-10-31] MEDS: Cefepime HCl 1,000 MG in D5% in Water (Mini-Bag+) 100 ML IVPB SCH ×2 (05:40→16:51)
[2016-10-31 07:13] LABS: BUN/Creatinine Ratio 28 (6-26); Blood Urea Nitrogen 30 mg/dL (8-26); Calcium 8.1 mg/dL (8.6-10.8); Carbon Dioxide 17 mEq/L (19-29); Chloride 108 mEq/L (98-109); Glucose 163 mg/dL (70-99); Osmolality,Calculated 284 (280-300); Potassium 4.1 mEq/L (3.5-4.5); Sodium 132 mEq/L (136-145); eGFR For African Americans > 60 (> 60); eGFR For Non-African Americans > 60 (> 60)
[2016-10-31 07:43] LABS: Hematocrit 26.6 % (37.5-50.1); Hemoglobin 8.5 g/dL (12.9-16.9); Mean Corpuscular Hemoglobin 28.6 pg (28.0-33.3); Mean Corpuscular Volume 89.6 fL (83.0-100.0); Mean Platelet Volume 10.7 fL (9.4-12.4); Platelet Count 323 K/mcL (140-400); Red Blood Count 2.97 M/mcL (4.19-5.50); Red Cell Distribution Width 14.9 % (11.5-14.5)
[2016-10-31] MEDS: Insulin LISPRO 300 UNITS/3 ML VIAL SQ SCH ×4 (07:57→21:08)
--- NOTE | 2016-10-31 08:47 | Internal Med Progress Note ---
Date of Encounter: 10/31/16 Time of Encounter: 08:44 - Assessment and plan (1) Healthcare associated bacterial pneumonia Current Visit: No Status: Acute Assessment and plan: Metabolic encephalopathy secondary to healthcare associated pneumonia present upon admission history of MRSA in sputum Chest x-ray shows a retrocardiac opacity. Continue vancomycin day 4, stopped Zosyn Continue cefepime day 3 1 out of 2 bottles of his blood cultures are growing possible MRSA, unlikely bacteremia, possible contamination of the blood culture. 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 VRE las time was sensitive to ampicillin, consider starting ampicillin or gentamicin if worse, was also sensitive to nitrofurantoin Current urine culture shows mixed lenny unable to identify. High risk due to sepsis History of diabetes type 2 insulin-dependent, CAD/CABG 3, CKD3, multiple CVAs TIAs, history of bladder carcinoma, indwelling suprapubic catheter and now has a urostomy bag, chronic recurrent urinary tract infections, chronic systolic CHF with an ejection fraction less than 25% (2) Generalized weakness Current Visit: No Status: Acute (3) Sepsis Current Visit: No Status: Acute Qualifiers: Sepsis type: sepsis due to unspecified organism Qualified Code(s): A41.9 - Sepsis, unspecified organism (4) Chronic systolic heart failure Current Visit: No Status: Chronic Assessment and plan: EF 25 % Resume lasix IV, was held due to dehydration (5) Diabetes mellitus Current Visit: No Status: Chronic Assessment and plan: Order insulin sliding scale Qualifiers: Diabetes mellitus type: type 2 Diabetes mellitus complication status: with hyperglycemia Diabetes mellitus exterminator helper termite insulin use: with exterminator helper termite use Qualified Code(s): E11.65 - Type 2 diabetes mellitus with hyperglycemia; Z79.4 - intermodal dispatcher (current) use of insulin (6) History of CVA (cerebrovascular accident) Current Visit: No Status: Chronic Assessment and plan: Continue aspirin (7) History of coronary artery bypass graft Current Visit: No Status: Chronic Assessment and plan: Continue Coreg, Lipitor and aspirin (8) History of urostomy Current Visit: No Status: Chronic (9) Anemia Current Visit: Yes Status: Acute Assessment and plan: Acute anemia, likely dilutional due to prior dehydration Continue omeprazole, ordered Hemoccult Consider holding aspirin if blood loss verified Recheck CBC tomorrow Qualifiers: Anemia type: other cause Other causes of anemia: other cause, not classified Qualified Code(s): D64.89 - Other specified anemias - Time Spent With Patient Greater than 35 minutes - Subjective Interval history: Feeling more SOB. The patient is still disoriented in time, less confused, more awake. Was able to communicate that he is not having any chest pain, no diarrhea, on the contrary he has been constipated. Complaining of mild abdominal pain, no fevers - Constitutional Vitals: Temp Pulse Resp BP Pulse Ox 98.8 F 74 20 100/57 95 10/31/16 07:18 10/31/16 07:18 10/31/16 07:18 10/31/16 07:18 10/31/16 07:18 General appearance: Present: cachectic, A&O X 2, underweight - Head Head exam: Present: atraumatic, normocephalic - Eye Eye exam: Present: PERRL, conjuntiva pink, sclera anicteric Pupils: Present: PERRL - Neck Neck exam general surgery: Present: supple, trachea midline. Absent: lymphadenopathy - Respiratory Respiratory exam: Present: decreased breath sounds (bibasilar crackles), CTAB. Absent: accessory muscle use, rales, rhonchi, wheezes - Cardiovascular Cardiovascular exam: Present: RRR, +S1, +S2. Absent: diastolic murmur, gallop, rubs, systolic murmur - GI/Abdominal GI/Abdominal exam: Present: normal bowel sounds, soft, no peritoneal signs. Absent: distended, tenderness - Extremities Exam Extremities exam: Present: warm, radial pulses palpable and symetrical. Absent : calf tenderness, cyanotic, pedal edema - Neurological Exam Neurological exam: Present: CN II-XII intact, no focal deficits. Absent: oriented X3, pronater drift, facial droop, speech deficit - Skin Skin exam: Present: dry, intact Additional comments: right upper back 2 cm circular dark skin lesion Internal Medicine: Result - Labs CBC & Chem 7: 10/31/16 05:54 10/31/16 05:54 Labs: Short CBC 10/30/16 10/31/16 Range/Units 13:50 05:54 WBC 8.2 (4.3-11.1) K/mcL Hgb 8.6 L 8.5 L (12.9-16.9) g/dL Hct 26.4 L 26.6 L (37.5-50.1) % Plt Count 323 (140-400) K/mcL BMP 10/31/16 05:54 Sodium 132 L Potassium 4.1 Chloride 108 Carbon Dioxide 17 L BUN 30 H Creatinine 1.09 Glucose 163 H Calcium 8.1 L Urine 10/30/16 Range/Units 09:15 Urine Color Yellow (Yellow) Urine Clarity Turbid A (Clear) Urine pH 6.0 (5.0-8.0) pH Units Ur Specific [place] 1.014 (1.010-1.025) Urine Protein 30 H (Neg-Trace) mg/dL Urine Glucose (UA) Normal (Normal) mg/dL Consult Discharge Plan - Plan Referrals: Rodrick Vázquez MD [Primary Care Provider] - 11/05/16 2:45 pm ()
[2016-10-31] MEDS: Furosemide 40 MG/4 ML VIAL IV SCH (09:07)
[2016-10-31] MEDS: Gabapentin 100 MG CAPSULE PO SCH ×3 (09:08→21:02)
[2016-10-31] MEDS: Lactobacillus 1 EACH CAP.SPRINK PO SCH ×2 (09:08→21:02)
[2016-10-31] MEDS: Aspirin Enteric Coated 81 MG Tablet PO SCH (09:08)
[2016-10-31] MEDS: 0.9 % Sodium Chloride 1,000 ML IVC SCH (12:03)
[2016-10-31] MEDS ORDERED: Ipratropium/Albuterol Neb 3 ML IH PRN (16:54)
[2016-10-31] MEDS: Acetaminophen 325 MG TABLET PO PRN (21:02)
[2016-10-31] MEDS: Insulin DETEMIR 100 UNIT/ML X5UNITS SQ SCH (21:04)
[2016-10-31] MEDS ORDERED: Ipratropium/Albuterol Neb 3 ML IH SCH (22:00)
[2016-11-01 06:03] LABS: Hematocrit 26.3 % (37.5-50.1); Hemoglobin 8.8 g/dL (12.9-16.9); Mean Corpuscular HGB Conc 33.5 g/dL (31.6-35.5); Mean Corpuscular Hemoglobin 29.1 pg (28.0-33.3); Mean Corpuscular Volume 87.1 fL (83.0-100.0); Mean Platelet Volume 10.9 fL (9.4-12.4); Platelet Count 338 K/mcL (140-400); Red Blood Count 3.02 M/mcL (4.19-5.50); Red Cell Distribution Width 14.9 % (11.5-14.5)
[2016-11-01] MEDS: Cefepime HCl 1,000 MG in D5% in Water (Mini-Bag+) 100 ML IVPB SCH ×2 (06:21→17:16)
[2016-11-01 06:26] LABS: BUN/Creatinine Ratio 23 (6-26); Blood Urea Nitrogen 29 mg/dL (8-26); Calcium 8.2 mg/dL (8.6-10.8); Carbon Dioxide 16 mEq/L (19-29); Chloride 109 mEq/L (98-109); Glucose 220 mg/dL (70-99); Osmolality,Calculated 293 (280-300); Potassium 3.6 mEq/L (3.5-4.5); Sodium 135 mEq/L (136-145); eGFR For African Americans > 60 (> 60); eGFR For Non-African Americans 54 (> 60)
[2016-11-01] MEDS: Furosemide 40 MG/4 ML VIAL IV SCH (08:19)
[2016-11-01] MEDS: Aspirin Enteric Coated 81 MG Tablet PO SCH (08:19)
[2016-11-01] MEDS: Insulin LISPRO 300 UNITS/3 ML VIAL SQ SCH ×4 (08:19→21:18)
[2016-11-01] MEDS: Lactobacillus 1 EACH CAP.SPRINK PO SCH ×2 (08:19→21:16)
[2016-11-01] MEDS: Gabapentin 100 MG CAPSULE PO SCH ×3 (08:19→21:16)
--- NOTE | 2016-11-01 08:53 | Discharge Summary ---
Date of Encounter: 11/01/16 Time of Encounter: 08:51 - Discharge Diagnosis (1) Healthcare associated bacterial pneumonia Priority: Primary Status: Acute Comments: Metabolic encephalopathy secondary to healthcare associated pneumonia present upon admission/MRSA pneumonia, history of MRSA in sputum Chest x-ray shows a retrocardiac opacity. Continue vancomycin day 5, stopped Zosyn Continue cefepime day 4 1 out of 2 bottles of his blood cultures are growing possible MRSA, unlikely bacteremia, possible contamination of the blood culture. 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 (2) Generalized weakness Priority: Secondary Status: Acute (3) Sepsis Priority: Primary Status: Acute Qualifiers: Sepsis type: sepsis due to unspecified organism Qualified Code(s): A41.9 - Sepsis, unspecified organism (4) Chronic systolic heart failure Priority: Secondary Status: Chronic (5) Diabetes mellitus Priority: Secondary Status: Chronic Qualifiers: Diabetes mellitus type: type 2 Diabetes mellitus complication status: with hyperglycemia Diabetes mellitus technician terminal and repeater insulin use: with technician terminal and repeater use Qualified Code(s): E11.65 - Type 2 diabetes mellitus with hyperglycemia; 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 insulin (6) History of CVA (cerebrovascular accident) Priority: Secondary Status: Chronic (7) History of coronary artery bypass graft Priority: Secondary Status: Chronic (8) History of urostomy Priority: Secondary Status: Chronic (9) Anemia Priority: Secondary Status: Acute Comments: Acute anemia, likely dilutional due to prior dehydration Qualifiers: Anemia type: other cause Other causes of anemia: other cause, not classified Qualified Code(s): D64.89 - Other specified anemias (10) Yeast UTI Priority: Secondary Status: Acute - Discharge Medications Prescriptions: Cefepime HCl/Dextrose, Iso-Osm [Cefepime 1 gm Injection] 1 gm IV BID 3 Days Fluconazole [Diflucan] 100 mg PO DAILY #14 tablet Furosemide [Lasix] 20 mg PO DAILY #30 tablet Guaifenesin [Mucinex] 1,200 mg PO BID #30 tab.er.12h Omeprazole [PriLOSEC] 40 mg PO DAILY #30 capsule. Vancomycin [Vancocin] 1,000 mg IV DAILY 2 Days Home Medications: Aspirin [Adult Low Dose Aspirin EC] 81 mg PO DAILY 10/16/15 [History] Atorvastatin [Lipitor] 40 mg PO HS 02/15/16 [History] Clopidogrel [Plavix] 75 mg PO DAILY #30 tablet 04/18/16 [Rx] Gabapentin [Neurontin] 300 mg PO TID PRN 06/12/16 [History] Insulin ASPART [Novolog Flexpen] 5 - 10 unit SQ TIDAC 06/12/16 [History] Lisinopril 2.5 mg PO DAILY 06/12/16 [History] Meclizine HCl [Verticalm] 25 mg PO TID PRN 06/12/16 [History] Benzonatate [Tessalon] 200 mg PO TID PRN #0 capsule 06/20/16 [Rx] Insulin DETEMIR [Levemir] 10 unit SQ HS [id number] 06/20/16 [Rx] Carvedilol 3.125 mg PO BID 08/09/16 [History] Metformin [Glucophage] 1,000 mg PO BIDWM 08/09/16 [History] Polyethylene Glycol 3350 [MiraLAX] 17 gm PO DAILY PRN 10/28/16 [History] Promethazine [Phenergan] 25 mg PO Q8HR PRN 10/28/16 [History] Cefepime HCl/Dextrose, Iso-Osm [Cefepime 1 gm Injection] 1 gm IV BID 3 Days 11/15 [Rx] Fluconazole [Diflucan] 100 mg PO DAILY #14 tablet 11/01/16 [Rx] Furosemide [Lasix] 20 mg PO DAILY #30 tablet 11/01/16 [Rx] Guaifenesin [Mucinex] 1,200 mg PO BID #30 tab.er.12h 11/01/16 [Rx] Omeprazole [PriLOSEC] 40 mg PO DAILY #30 capsule. 11/01/16 [Rx] Vancomycin [Vancocin] 1,000 mg IV DAILY 2 Days 11/01/16 [Rx] Allergies/Adverse Reactions: Allergies Sulfa (Sulfonamide Antibiotics) Allergy (Verified 04/13/16 10:53) Rash Procedures/tests Complete & Pending: Procedures Performed prior 72 hours Category Date Time Status EV limited echocardiogram Routine Y 11/01/16 08:42 Ordered Date of admission: 10/28/16 23:47 Primary care physician: Rodrick Vázquez MD Consults: 10/29/16 02:55 Consult to Speech Therapy [CONS] Routine Comment: Evaluate, develop and implement POC Reason for Consult: Suspicion for aspiration pneumonia Call Completed: No 10/30/16 08:54 Consult to Occupational Therapy [CONS] Routine Comment: Evaluate, develop and implement POC Consult to Physical Therapy [CONS] Routine Comment: Evaluate, develop and implement POC 10/31/16 07:42 Consult to Drafter Structural [CONS] Routine Reason for SW Consult: therapy eval stated needs ecf, per pt wants [facility] - Patient Status Disposition: Transfer SNF Condition: Fair Overall status at discharge: patient is progressing back to baseline - Discharge Instructions Follow Up With: Rodrick Vázquez MD [Primary Care Provider] - 11/05/16 2:45 pm (this patient is going to ECF) Additional Instructions: Follow with primary care physician within the next 7 days. Complete doses of cefepime for 3 more days and vancomycin IV for 2 more days. Continue fluconazole oral to complete 2 weeks. - Diet and Activity Activity: increase activity as tolerated Diet: low fat, low cholesterol Hospital course: Mr. Herron is a 81 year old male with History of diabetes type 2 insulin- dependent, CAD/CABG 3, CKD3, multiple CVAs TIAs, history of bladder carcinoma, indwelling suprapubic catheter and now has a urostomy bag, chronic recurrent urinary tract infections, chronic systolic CHF with an ejection fraction less than 25%. The patient was experiencing fatigue, cough with shortness of breath for approximately 4 days prior to admission. He was diagnosed with MRSA pneumonia during his most recent hospitalization in August, at that time he did have MRSA in his sputum. White count 15.5, creatinine 1.46, bicarbonate 17. Chest x-ray revealed patchy ACDs and retrocardiac left bases atelectasis or pneumonia which were new from prior x-ray. Patient's vital signs he was tachycardic heart rate of 104 low-grade temperature of 99.2 oxygen saturation 95% howeverSPO2 drop 92%on 2 L nasal cannula Blood cultures were obtained, patient was initiated on Levaquin. Appeared cachectic weak and frail. The patient was started on vancomycin and Zosyn upon admission. Zosyn was discontinued and cefepime was started. During his hospitalization his hemoglobin dropped from 11.8 down to 8.5. This was thought to be caused by dilution she was very dehydrated initially. Aspirin and Plavix were held for a couple of days, it safe to restart them as the patient's hemoglobin has been stable, today is 8.8 and there are no signs of bleeding. Urine culture showed mixed lenny, second urinalysis was sent and is growing yeasts, since the patient is still complaining of some abdominal discomfort from his urostomy bag we will start fluconazole. The patient will be discharged to an ECF on cefepime and vancomycin, also fluconazole oral. - Time Spent with Patient Total time spent providing and/or coordinating discharge services: Greater than 30 minutes (40 min) - Constitutional Vitals: Temp Pulse Resp BP Pulse Ox 97.4 F L 66 18 119/65 94 L 11/01/16 06:38 11/01/16 06:38 11/01/16 06:38 11/01/16 06:38 11/01/16 08:32 General appearance: Present: cachectic, A&O X 2, underweight - Head Head exam: Present: atraumatic, normocephalic - Eye Eye exam: Present: PERRL, conjuntiva pink, sclera anicteric Pupils: Present: PERRL - Neck Neck exam general surgery: Present: supple, trachea midline. Absent: lymphadenopathy - Respiratory Respiratory exam: Present: decreased breath sounds, CTAB. Absent: accessory muscle use, rales, rhonchi, wheezes - Cardiovascular Cardiovascular exam: Present: RRR, +S1, +S2. Absent: diastolic murmur, gallop, rubs, systolic murmur - GI/Abdominal GI/Abdominal exam: Present: normal bowel sounds, soft, no peritoneal signs. Absent: distended, tenderness Additional comments: Urostomy bag in place - Extremities Exam Extremities exam: Present: warm, radial pulses palpable and symetrical. Absent : calf tenderness, cyanotic, pedal edema - Neurological Exam Neurological exam: Present: CN II-XII intact, no focal deficits. Absent: oriented X3 (Disoriented in time), pronater drift, facial droop, speech deficit - Skin Skin exam: Present: dry, intact - VTE Documentation of Mechanical Device: Intermittent pneumatic compression device
--- NOTE | 2016-11-01 09:21 | Physician Discharge Referral ---
ExtendedCare Referral Info Provider in Charge after Transfer: PCP Institutional Level of Care: Skilled - Diagnosis (1) Healthcare associated bacterial pneumonia Status: Acute (2) Generalized weakness Status: Acute (3) Sepsis Status: Acute (4) Chronic systolic heart failure Status: Chronic (5) Diabetes mellitus Status: Chronic (6) History of CVA (cerebrovascular accident) Status: Chronic (7) History of coronary artery bypass graft Status: Chronic (8) History of urostomy Status: Chronic (9) Anemia Status: Acute (10) Yeast UTI Status: Acute - Transfer Medications Prescriptions: Cefepime HCl/Dextrose, Iso-Osm [Cefepime 1 gm Injection] 1 gm IV BID 3 Days Fluconazole [Diflucan] 100 mg PO DAILY #14 tablet Furosemide [Lasix] 20 mg PO DAILY #30 tablet Guaifenesin [Mucinex] 1,200 mg PO BID #30 tab.er.12h Omeprazole [PriLOSEC] 40 mg PO DAILY #30 capsule. Vancomycin [Vancocin] 1,000 mg IV DAILY 2 Days Home Medications: Aspirin [Adult Low Dose Aspirin EC] 81 mg PO DAILY 10/16/15 [History] Atorvastatin [Lipitor] 40 mg PO HS 10/16/15 [History] Clopidogrel [Plavix] 75 mg PO DAILY #30 tablet 04/18/16 [Rx] Gabapentin [Neurontin] 300 mg PO TID PRN 06/12/16 [History] Insulin ASPART [Novolog Flexpen] 5 - 10 unit SQ TIDAC 06/12/16 [History] Lisinopril 2.5 mg PO DAILY 06/12/16 [History] Meclizine HCl [Verticalm] 25 mg PO TID PRN 06/12/16 [History] Benzonatate [Tessalon] 200 mg PO TID PRN #0 capsule 06/20/16 [Rx] Insulin DETEMIR [Levemir] 10 unit SQ HS [id number] 06/20/16 [Rx] Carvedilol 3.125 mg PO BID 08/09/16 [History] Metformin [Glucophage] 1,000 mg PO BIDWM 08/09/16 [History] Polyethylene Glycol 3350 [MiraLAX] 17 gm PO DAILY PRN 10/28/16 [History] Promethazine [Phenergan] 25 mg PO Q8HR PRN 10/28/16 [History] Cefepime HCl/Dextrose, Iso-Osm [Cefepime 1 gm Injection] 1 gm IV BID 3 Days 11/15 [Rx] Fluconazole [Diflucan] 100 mg PO DAILY #14 tablet 11/01/16 [Rx] Furosemide [Lasix] 20 mg PO DAILY #30 tablet 11/01/16 [Rx] Guaifenesin [Mucinex] 1,200 mg PO BID #30 tab.er.12h 11/01/16 [Rx] Omeprazole [PriLOSEC] 40 mg PO DAILY #30 capsule.dr 11/01/16 [Rx] Vancomycin [Vancocin] 1,000 mg IV DAILY 2 Days 11/01/16 [Rx] Allergies/Adverse Reactions: Allergies Sulfa (Sulfonamide Antibiotics) Allergy (Verified 04/13/16 10:53) Rash - Respiratory Orders Smoking Cessation: Smoking cessation has been advised. For more information, call the [place] [employer] Quit Line at 2-084-ATJP-NOW. - Advance Directives Code Status: Full Code - Rehabiliation Orders Rehab Orders: Evaluation for Physical Therapy - Treatments List/Other: Follow with primary care physician within the next 7 days. Complete doses of cefepime for 3 more days and vancomycin IV for 2 more days. Continue fluconazole oral to complete 2 weeks. - Diet Orders No Added Salt (MORGAN) CERTIFICATION: I certify that the transfer of the above named patient to an Extended Care Facility is necessary for the continuing treatment of the diagnosis listed. The above information is true and accurate reflection of patient's current condition. Confidential - Redisclosure prohibited without a patient's written consent.
[2016-11-01] MEDS: Fluconazole 100 MG TABLET PO SCH (12:11)
[2016-11-01] MEDS: Insulin DETEMIR 100 UNIT/ML X5UNITS SQ SCH (22:16)
[2016-11-02] MEDS: Vancomycin 1,000 MG in D5% in Water 250 ML IVPB SCH ×2 (00:24→03:00)
[2016-11-02] MEDS: Cefepime HCl 1,000 MG in D5% in Water (Mini-Bag+) 100 ML IVPB SCH ×2 (05:14→17:00)
--- NOTE | 2016-11-02 07:40 | ECHO - Doppler Report ---
Limited Echocardiogram Name: Jonatan Herron Date of Study: 11/01/2016 Date: 1935 Ht: 66.0 in Medical Record#: [id number] Age: 81 Wt: 142.0 lb Gender: Male BSA: 1.73 Order #: [id number] Location: [facility] Room #: 2A24 Reading Physician: Castro Last MD, [facility] Potable Water Treatment Operator: Yomaira Sun Ordering Physician: Lopez Elizabeth MD Primary Physician: Rodrick Vázquez M.D. Indications: Endocarditis/vegetations Impressions: LVEF 45-50%. No diagnostic vegetation seen on the aortic or mitral valve but cannot be excluded on the basis of this study. FERDINAND would provide better diagnostic sensitivity if clinically indicated. Left Ventricular Wall Motion: Rest Echo Findings The mid inferior, basal inferior and basal inferior lateral nielson were hypokinetic. All other wall segments showed normal motion. Findings: Aorta * The aortic root is mildly dilated. Study Quality * Technically adequate exam. Left Atrium * Mildly dilated left atrium. Pulmonic Valve * Pulmonic valve not well visualized. Tricuspid Valve * Tricuspid valve not well visualized. * No diagnostic vegetation Mitral Valve * Normal mitral valve structure. Aortic Valve * No diagnostic vegetation Left Ventricle * LVEF 45-50%. History Hypertension Diabetes Hypercholesteremia History of CAD/PTCA Myocardial Infarction Coronary Artery Bypass Graft Congestive Heart Failure Valvular Disease 10/07/2015 a Previous Echo was performed. Measurements: BP: 109/ 70 2D Normal Values RVIDd: 2.60 cm <2.7 cm IVSd: 1.30 cm 0.6 - 1.0 cm LVIDd: 5.20 cm 3.7 - 5.6 cm LVPWd: 1.10 cm 0.6 - 1.1 cm LVIDs: 3.30 cm 1.5 - 3.6 cm AO: 4.10 cm < 4.0 cm LA: 4.20 cm 2.0 - 4.0cm %FS: 36.50 cm >25 % LA volume: 50 Updated by Castro Last MD, [facility] on 11/02/2016 7:35:19 AM electronically signed on 11/02/2016 7:36:40 AM with status of Final Wall Motion Smith: 1=Normal, 2=Hypokinesis, 3=Akinesis, 4=Dyskinesis, 5=Aneurysmal, 6=Hyperkinetic, X=Not Visualized (Blank)=Missing
[2016-11-02] MEDS: Insulin LISPRO 300 UNITS/3 ML VIAL SQ SCH ×4 (09:07→21:27)
[2016-11-02] MEDS: Fluconazole 100 MG TABLET PO SCH (09:08)
[2016-11-02] MEDS: Lactobacillus 1 EACH CAP.SPRINK PO SCH ×2 (09:08→21:31)
[2016-11-02] MEDS: Furosemide 40 MG/4 ML VIAL IV SCH (09:08)
[2016-11-02] MEDS: Gabapentin 100 MG CAPSULE PO SCH ×3 (09:09→21:31)
[2016-11-02] MEDS: Aspirin Enteric Coated 81 MG Tablet PO SCH (09:09)
[2016-11-02] MEDS: 0.9 % Sodium Chloride 1,000 ML IVC SCH ×2 (09:13→21:32)
--- NOTE | 2016-11-02 11:00 | Internal Med Progress Note ---
Date of Encounter: 11/02/16 Time of Encounter: 10:57 - Assessment and plan (1) Healthcare associated bacterial pneumonia Current Visit: No Status: Acute Assessment and plan: Metabolic encephalopathy secondary to sepsis due to healthcare associated pneumonia present upon admission/MRSA pneumonia, history of MRSA in sputum, also positive for yeast in his urine culture Started fluconazole day 2 Chest x-ray shows a retrocardiac opacity. Continue vancomycin day 6, stopped Zosyn Continue cefepime day 5 1 out of 2 bottles of his blood cultures are growing possible MRSA, unlikely bacteremia, possible contamination of the blood culture. 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 VRE las time was sensitive to ampicillin, consider starting ampicillin or gentamicin if worse, was also sensitive to nitrofurantoin Current urine culture shows mixed lenny unable to identify. High risk due to sepsis History of diabetes type 2 insulin-dependent, CAD/CABG 3, CKD3, multiple CVAs TIAs, history of bladder carcinoma, indwelling suprapubic catheter and now has a urostomy bag, chronic recurrent urinary tract infections, chronic systolic CHF with an ejection fraction less than 25% (2) Generalized weakness Current Visit: No Status: Acute (3) Sepsis Current Visit: No Status: Acute Qualifiers: Sepsis type: sepsis due to unspecified organism Qualified Code(s): A41.9 - Sepsis, unspecified organism (4) Chronic systolic heart failure Current Visit: No Status: Chronic Assessment and plan: EF 25 % Resume lasix IV, was held due to dehydration (5) Diabetes mellitus Current Visit: No Status: Chronic Assessment and plan: Order insulin sliding scale Qualifiers: Diabetes mellitus type: type 2 Diabetes mellitus complication status: with hyperglycemia Diabetes mellitus medical terminologist insulin use: with medical terminologist use Qualified Code(s): E11.65 - Type 2 diabetes mellitus with hyperglycemia; Z79.4 - custodial (current) use of insulin (6) History of CVA (cerebrovascular accident) Current Visit: No Status: Chronic Assessment and plan: Continue aspirin (7) History of coronary artery bypass graft Current Visit: No Status: Chronic Assessment and plan: Continue Coreg, Lipitor and aspirin (8) History of urostomy Current Visit: No Status: Chronic (9) Anemia Current Visit: Yes Status: Acute Assessment and plan: Acute anemia, likely dilutional due to prior dehydration Continue omeprazole, ordered Hemoccult Consider holding aspirin if blood loss verified Recheck CBC tomorrow Qualifiers: Anemia type: other cause Other causes of anemia: other cause, not classified Qualified Code(s): D64.89 - Other specified anemias (10) Yeast UTI Current Visit: Yes Status: Acute Assessment and plan: on fluconazole - Time Spent With Patient Greater than 35 minutes - Subjective Interval history: Very weak, was not able to be discharged yesterday as his precertification did not go through. Denies any chest pain, complains of mild shortness of breath, fevers overnight, no abdominal pain, no diarrhea - Constitutional Vitals: Temp Pulse Resp BP Pulse Ox 97.5 F L 68 14 122/67 93 L 11/02/16 08:03 11/02/16 08:03 11/02/16 08:03 11/02/16 08:03 11/02/16 08:03 General appearance: Present: cachectic, A&O X 2, underweight - Head Head exam: Present: atraumatic, normocephalic - Eye Eye exam: Present: PERRL, conjuntiva pink, sclera anicteric Pupils: Present: PERRL - Neck Neck exam general surgery: Present: supple, trachea midline. Absent: lymphadenopathy - Respiratory Respiratory exam: Present: CTAB. Absent: accessory muscle use, rales, rhonchi, wheezes - Cardiovascular Cardiovascular exam: Present: RRR, +S1, +S2. Absent: diastolic murmur, gallop, rubs, systolic murmur - GI/Abdominal GI/Abdominal exam: Present: distended (Urostomy bag in place), normal bowel sounds, soft, no peritoneal signs. Absent: tenderness - Extremities Exam Extremities exam: Present: warm, radial pulses palpable and symetrical. Absent : calf tenderness, cyanotic, pedal edema - Neurological Exam Neurological exam: Present: CN II-XII intact, no focal deficits. Absent: oriented X3 (Disoriented in time), pronater drift, facial droop, speech deficit - Skin Skin exam: Present: dry, intact Internal Medicine: Result - Labs CBC & Chem 7: 11/01/16 05:11 11/01/16 05:11 - VTE Documentation of Mechanical Device: Intermittent pneumatic compression device Consult Discharge Plan - Plan Instructions: Urinary Tract Infection in Men (DC), Anemia (GEN), Pneumonia (DC) Additional Instructions: Follow with primary care physician within the next 7 days. Complete doses of cefepime for 3 more days and vancomycin IV for 2 more days. Continue fluconazole oral to complete 2 weeks. Referrals: Rodrick Vázquez MD [Primary Care Provider] - (Patient will follow up with the PCP at the [facility]) Prescriptions: Cefepime HCl/Dextrose, Iso-Osm [Cefepime 1 gm Injection] 1 gm IV BID 3 Days Fluconazole [Diflucan] 100 mg PO DAILY #14 tablet Furosemide [Lasix] 20 mg PO DAILY #30 tablet Guaifenesin [Mucinex] 1,200 mg PO BID #30 tab.er.12h Omeprazole [PriLOSEC] 40 mg PO DAILY #30 capsule. Vancomycin [Vancocin] 1,000 mg IV DAILY 2 Days
[2016-11-02] MEDS ORDERED: Vancomycin 750 MG in D5% in Water (Mini-Bag+) 100 ML IVPB SCH (18:00)
[2016-11-02] MEDS: Vancomycin 750 MG in D5% in Water (Mini-Bag+) 100 ML IVPB SCH (19:35)
[2016-11-02] MEDS: Insulin DETEMIR 100 UNIT/ML X5UNITS SQ SCH (21:31)
[2016-11-03] MEDS: Cefepime HCl 1,000 MG in D5% in Water (Mini-Bag+) 100 ML IVPB SCH ×2 (05:32→17:26)
[2016-11-03] MEDS: Acetaminophen 325 MG TABLET PO PRN (05:46)
[2016-11-03 06:09] LABS: Hematocrit 28.6 % (37.5-50.1); Hemoglobin 9.1 g/dL (12.9-16.9); Mean Corpuscular HGB Conc 31.8 g/dL (31.6-35.5); Mean Platelet Volume 10.4 fL (9.4-12.4); Platelet Count 401 K/mcL (140-400); Red Blood Count 3.25 M/mcL (4.19-5.50); Red Cell Distribution Width 15.1 % (11.5-14.5)
[2016-11-03 06:22] LABS: BUN/Creatinine Ratio 22 (6-26); Blood Urea Nitrogen 27 mg/dL (8-26); Calcium 8.4 mg/dL (8.6-10.8); Carbon Dioxide 19 mEq/L (19-29); Chloride 111 mEq/L (98-109); Glucose 133 mg/dL (70-99); Osmolality,Calculated 295 (280-300); Potassium 3.5 mEq/L (3.5-4.5); Sodium 139 mEq/L (136-145); eGFR For African Americans > 60 (> 60); eGFR For Non-African Americans 55 (> 60)
[2016-11-03] MEDS: Insulin LISPRO 300 UNITS/3 ML VIAL SQ SCH ×4 (08:25→22:35)
[2016-11-03] MEDS: Fluconazole 100 MG TABLET PO SCH (08:36)
[2016-11-03] MEDS: Lactobacillus 1 EACH CAP.SPRINK PO SCH ×2 (08:36→22:24)
[2016-11-03] MEDS: Aspirin Enteric Coated 81 MG Tablet PO SCH (08:36)
[2016-11-03] MEDS: Furosemide 40 MG/4 ML VIAL IV SCH (08:36)
[2016-11-03] MEDS: Gabapentin 100 MG CAPSULE PO SCH ×3 (08:36→22:24)
[2016-11-03] MEDS: 0.9 % Sodium Chloride 1,000 ML IVC SCH (08:37)
--- NOTE | 2016-11-03 10:50 | Internal Med Progress Note ---
Date of Encounter: 11/03/16 Time of Encounter: 10:48 - Assessment and plan (1) Healthcare associated bacterial pneumonia Current Visit: No Status: Acute Assessment and plan: Metabolic encephalopathy secondary to sepsis due to healthcare associated pneumonia present upon admission/MRSA pneumonia, history of MRSA in sputum, also positive for Mela (not albicans) in his urine culture Continueluconazole day 3 Chest x-ray shows a retrocardiac opacity. Continue vancomycin day 7, stopped Zosyn Continue cefepime day 6 1 out of 2 bottles of his blood cultures are growing possible MRSA, unlikely bacteremia, possible contamination of the blood culture. 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 VRE las time was sensitive to ampicillin, consider starting ampicillin or gentamicin if worse, was also sensitive to nitrofurantoin Current urine culture shows mixed lenny unable to identify. High risk due to sepsis History of diabetes type 2 insulin-dependent, CAD/CABG 3, CKD3, multiple CVAs TIAs, history of bladder carcinoma, indwelling suprapubic catheter and now has a urostomy bag, chronic recurrent urinary tract infections, chronic systolic CHF with an ejection fraction less than 25% (2) Generalized weakness Current Visit: No Status: Acute (3) Sepsis Current Visit: No Status: Acute Qualifiers: Sepsis type: sepsis due to unspecified organism Qualified Code(s): A41.9 - Sepsis, unspecified organism (4) Chronic systolic heart failure Current Visit: No Status: Chronic Assessment and plan: EF 25 % Resumed lasix , was held due to dehydration (5) Diabetes mellitus Current Visit: No Status: Chronic Assessment and plan: Order insulin sliding scale Qualifiers: Diabetes mellitus type: type 2 Diabetes mellitus complication status: with hyperglycemia Diabetes mellitus correction insulin use: with correction use Qualified Code(s): E11.65 - Type 2 diabetes mellitus with hyperglycemia; Z79.4 - terminal manager (current) use of insulin (6) History of CVA (cerebrovascular accident) Current Visit: No Status: Chronic Assessment and plan: Continue aspirin (7) History of coronary artery bypass graft Current Visit: No Status: Chronic Assessment and plan: Continue Coreg, Lipitor and aspirin (8) History of urostomy Current Visit: No Status: Chronic (9) Anemia Current Visit: Yes Status: Acute Assessment and plan: Acute anemia, likely dilutional due to prior dehydration Continue omeprazole, ordered Hemoccult Consider holding aspirin if blood loss verified Qualifiers: Anemia type: other cause Other causes of anemia: other cause, not classified Qualified Code(s): D64.89 - Other specified anemias (10) Yeast UTI Current Visit: Yes Status: Acute Assessment and plan: on fluconazole - Time Spent With Patient Greater than 35 minutes - Subjective Interval history: Very weak, was not able to be discharged on as his precertification did not go through. Denies any chest pain, complains of shortness of breath, fevers overnight, no abdominal pain, no diarrhea - Constitutional Vitals: Temp Pulse Resp BP Pulse Ox 97.5 F L 70 17 95/59 91 L 11/03/16 08:00 11/03/16 08:00 11/03/16 08:00 11/03/16 08:00 11/03/16 08:00 General appearance: Present: cachectic, A&O X 2, underweight - Head Head exam: Present: atraumatic, normocephalic - Eye Eye exam: Present: PERRL, conjuntiva pink, sclera anicteric Pupils: Present: PERRL - Neck Neck exam general surgery: Present: supple, trachea midline. Absent: lymphadenopathy - Respiratory Respiratory exam: Present: decreased breath sounds (Upper airway congestion), CTAB. Absent: accessory muscle use, rales, rhonchi, wheezes - Cardiovascular Cardiovascular exam: Present: RRR, +S1, +S2. Absent: diastolic murmur, gallop, rubs, systolic murmur - GI/Abdominal GI/Abdominal exam: Present: normal bowel sounds, soft, no peritoneal signs. Absent: distended, tenderness - Extremities Exam Extremities exam: Present: warm, radial pulses palpable and symetrical. Absent : calf tenderness, cyanotic, pedal edema Additional comments: deformed and thick fingers - Neurological Exam Neurological exam: Present: CN II-XII intact, no focal deficits. Absent: oriented X3, pronater drift, facial droop, speech deficit - Skin Skin exam: Present: dry, intact Internal Medicine: Result - Labs CBC & Chem 7: 11/03/16 05:40 11/03/16 05:40 Labs: Short CBC 11/03/16 Range/Units 05:40 WBC 12.2 H (4.3-11.1) K/mcL Hgb 9.1 L (12.9-16.9) g/dL Hct 28.6 L (37.5-50.1) % Plt Count 401 H (140-400) K/mcL [facility] 11/03/16 05:40 Sodium 139 Potassium 3.5 Chloride 111 H Carbon Dioxide 19 BUN 27 H Creatinine 1.25 Glucose 133 H Calcium 8.4 L - VTE Documentation of Mechanical Device: Intermittent pneumatic compression device Consult Discharge Plan - Plan Instructions: Urinary Tract Infection in Men (DC), Anemia (GEN), Pneumonia (DC) Additional Instructions: Follow with primary care physician within the next 7 days. Complete doses of cefepime for 3 more days and vancomycin IV for 2 more days. Continue fluconazole oral to complete 2 weeks. Referrals: Rodrick Vázquez MD [Primary Care Provider] - (Patient will follow up with the PCP at the [facility]) Prescriptions: Cefepime HCl/Dextrose, Iso-Osm [Cefepime 1 gm Injection] 1 gm IV BID 3 Days Fluconazole [Diflucan] 100 mg PO DAILY #14 tablet Furosemide [Lasix] 20 mg PO DAILY #30 tablet Guaifenesin [Mucinex] 1,200 mg PO BID #30 tab.er.12h Omeprazole [PriLOSEC] 40 mg PO DAILY #30 capsule. Vancomycin [Vancocin] 1,000 mg IV DAILY 2 Days
[2016-11-03] MEDS: Vancomycin 750 MG in D5% in Water (Mini-Bag+) 100 ML IVPB SCH (22:24)
[2016-11-03] MEDS: Insulin DETEMIR 100 UNIT/ML X5UNITS SQ SCH (22:34)
[2016-11-04] MEDS: 0.9 % Sodium Chloride 1,000 ML IVC SCH ×2 (03:09→15:48)
[2016-11-04 03:56] LABS: Hematocrit 24.4 % (37.5-50.1); Hemoglobin 8.1 g/dL (12.9-16.9); Mean Corpuscular HGB Conc 33.2 g/dL (31.6-35.5); Mean Corpuscular Hemoglobin 29.2 pg (28.0-33.3); Mean Corpuscular Volume 88.1 fL (83.0-100.0); Mean Platelet Volume 10.7 fL (9.4-12.4); Platelet Count 353 K/mcL (140-400); Red Blood Count 2.77 M/mcL (4.19-5.50); Red Cell Distribution Width 15.3 % (11.5-14.5)
[2016-11-04 04:06] LABS: BUN/Creatinine Ratio 20 (6-26); Blood Urea Nitrogen 26 mg/dL (8-26); Calcium 8.4 mg/dL (8.6-10.8); Carbon Dioxide 19 mEq/L (19-29); Chloride 109 mEq/L (98-109); Glucose 172 mg/dL (70-99); Osmolality,Calculated 293 (280-300); Potassium 3.3 mEq/L (3.5-4.5); Sodium 137 mEq/L (136-145); eGFR For African Americans > 60 (> 60); eGFR For Non-African Americans 54 (> 60)
[2016-11-04] MEDS: Cefepime HCl 1,000 MG in D5% in Water (Mini-Bag+) 100 ML IVPB SCH (06:16)
[2016-11-04] MEDS ORDERED: Aminoglycoside Consult 1 EACH MC ONE (07:50)
[2016-11-04] MEDS: Insulin LISPRO 300 UNITS/3 ML VIAL SQ SCH ×4 (08:58→21:44)
[2016-11-04] MEDS: Lactobacillus 1 EACH CAP.SPRINK PO SCH ×2 (09:00→21:46)
[2016-11-04] MEDS: Aspirin Enteric Coated 81 MG Tablet PO SCH (09:00)
[2016-11-04] MEDS: Fluconazole 100 MG TABLET PO SCH (09:00)
[2016-11-04] MEDS: Furosemide 40 MG/4 ML VIAL IV SCH (09:00)
[2016-11-04] MEDS: Gabapentin 100 MG CAPSULE PO SCH ×3 (09:00→21:46)
--- NOTE | 2016-11-04 09:16 | Internal Med Progress Note ---
<Jhonatan Shafer - Last Filed: 11/04/16 09:21> Date of Encounter: 11/04/16 Time of Encounter: 09:14 - Assessment and plan (1) Healthcare associated bacterial pneumonia Current Visit: No Status: Acute Assessment and plan: Metabolic encephalopathy secondary to sepsis due to healthcare associated pneumonia present upon admission/MRSA pneumonia, history of MRSA in sputum, also positive for Mela (not albicans) in his urine culture Continue fluconazole day 4. WIll continue outpatient for total 14 days. Chest x-ray shows a retrocardiac opacity. Finished 8 days of abx with vancomycin and cefepime. 1 out of 2 bottles of his blood cultures are growing possible MRSA, unlikely bacteremia, possible contamination of the blood culture. 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 VRE las time was sensitive to ampicillin, consider starting ampicillin or gentamicin if worse, was also sensitive to nitrofurantoin Current urine culture shows mixed lenny unable to identify. High risk due to sepsis History of diabetes type 2 insulin-dependent, CAD/CABG 3, CKD3, multiple CVAs TIAs, history of bladder carcinoma, indwelling suprapubic catheter and now has a urostomy bag, chronic recurrent urinary tract infections, chronic systolic CHF with an ejection fraction less than 25% (2) Anemia Current Visit: Yes Status: Acute Qualifiers: Anemia type: other cause Other causes of anemia: other cause, not classified Qualified Code(s): D64.89 - Other specified anemias (3) Sepsis Current Visit: No Status: Resolved Assessment and plan: possibley 2nd to MRSA pneumonia, or UTI 2nd to VRE or candidia. Finished 8 dyas of abx. Continue fluconazole outpatient. Qualifiers: Sepsis type: sepsis due to unspecified organism Qualified Code(s): A41.9 - Sepsis, unspecified organism (4) Chronic systolic heart failure Current Visit: No Status: Chronic Assessment and plan: EF 25 % Resumed lasix , was held due to dehydration (5) Diabetes mellitus Current Visit: No Status: Chronic Assessment and plan: Controlled. Continue insulin sliding scale Qualifiers: Diabetes mellitus type: type 2 Diabetes mellitus complication status: with hyperglycemia Diabetes mellitus nursing home insulin use: with nursing home use Qualified Code(s): E11.65 - Type 2 diabetes mellitus with hyperglycemia; Z79.4 - long term care phlebotomist (current) use of insulin (6) Generalized weakness Current Visit: No Status: Chronic (7) History of CVA (cerebrovascular accident) Current Visit: No Status: Chronic Assessment and plan: Continue aspirin (8) History of coronary artery bypass graft Current Visit: No Status: Chronic Assessment and plan: Continue Coreg, Lipitor and aspirin - Subjective Interval history: Patient was happily eating breakfast this morning. He denies abdominal pain, feve, chills, nausea, weakness. - Constitutional Vitals: Temp Pulse Resp BP Pulse Ox 97.8 F 67 18 97/48 94 L 11/04/16 08:33 11/04/16 08:33 11/04/16 08:33 11/04/16 08:33 11/04/16 08:33 General appearance: Present: cachectic, A&O X 2, underweight - Head Head exam: Present: atraumatic, normocephalic - Eye Eye exam: Present: PERRL, conjuntiva pink, sclera anicteric - Neck Neck exam general surgery: Present: supple, trachea midline. Absent: lymphadenopathy - Respiratory Respiratory exam: Present: CTAB. Absent: accessory muscle use, rales, rhonchi, wheezes - Cardiovascular Cardiovascular exam: Present: irregular rhythm, +S1, +S2. Absent: diastolic murmur, gallop, rubs, systolic murmur - GI/Abdominal GI/Abdominal exam: Present: normal bowel sounds, soft, no peritoneal signs. Absent: distended, tenderness - Extremities Exam Extremities exam: Present: warm, radial pulses palpable and symetrical. Absent : calf tenderness, cyanotic, pedal edema - Neurological Exam Neurological exam: Present: CN II-XII intact, oriented X3, no focal deficits. Absent: pronater drift, facial droop, speech deficit - Skin Skin exam: Present: dry, intact Internal Medicine: Result - Labs CBC & Chem 7: 11/04/16 03:10 11/04/16 03:10 Labs: Short CBC 11/04/16 Range/Units 03:10 WBC 8.9 (4.3-11.1) K/mcL Hgb 8.1 L (12.9-16.9) g/dL Hct 24.4 L (37.5-50.1) % Plt Count 353 (140-400) K/mcL BMP 11/04/16 03:10 Sodium 137 Potassium 3.3 L Chloride 109 Carbon Dioxide 19 BUN 26 Creatinine 1.27 H Glucose 172 H Calcium 8.4 L - VTE Documentation of Mechanical Device: Intermittent pneumatic compression device Consult Discharge Plan - Plan Instructions: Urinary Tract Infection in Men (DC), Anemia (GEN), Pneumonia (DC) Additional Instructions: Follow with primary care physician within the next 7 days. Complete doses of cefepime for 3 more days and vancomycin IV for 2 more days. Continue fluconazole oral to complete 2 weeks. Referrals: Rodrick Vázquez MD [Primary Care Provider] - (Patient will follow up with the PCP at the [facility]) Prescriptions: Fluconazole [Diflucan] 100 mg PO DAILY #14 tablet Furosemide [Lasix] 20 mg PO DAILY #30 tablet Guaifenesin [Mucinex] 1,200 mg PO BID #30 tab.er.12h Omeprazole [PriLOSEC] 40 mg PO DAILY #30 capsule. <Lopez Elizabeth H - Last Filed: 11/04/16 09:44> Date of Encounter: 11/04/16 - Assessment and plan (1) Healthcare associated bacterial pneumonia Current Visit: No Status: Acute (2) Generalized weakness Current Visit: No Status: Acute (3) Sepsis Current Visit: No Status: Resolved Qualifiers: Sepsis type: sepsis due to unspecified organism Qualified Code(s): A41.9 - Sepsis, unspecified organism (4) Chronic systolic heart failure Current Visit: No Status: Chronic (5) Diabetes mellitus Current Visit: No Status: Chronic Qualifiers: Diabetes mellitus type: type 2 Diabetes mellitus complication status: with hyperglycemia Diabetes mellitus regional intermodal truck driver insulin use: with regional intermodal truck driver use Qualified Code(s): E11.65 - Type 2 diabetes mellitus with hyperglycemia; Z79.4 - long term care phlebotomist (current) use of insulin (6) History of CVA (cerebrovascular accident) Current Visit: No Status: Chronic (7) History of coronary artery bypass graft Current Visit: No Status: Chronic (8) History of urostomy Current Visit: No Status: Chronic (9) Anemia Current Visit: Yes Status: Acute Qualifiers: Anemia type: other cause Other causes of anemia: other cause, not classified Qualified Code(s): D64.89 - Other specified anemias (10) Yeast UTI Current Visit: Yes Status: Acute - Constitutional Vitals: Temp Pulse Resp BP Pulse Ox 97.8 F 67 18 97/48 94 L 11/04/16 08:33 11/04/16 08:33 11/04/16 08:33 11/04/16 08:33 11/04/16 08:33 Internal Medicine: Result - Labs CBC & Chem 7: 11/04/16 03:10 11/04/16 03:10 Labs: Short CBC 11/04/16 Range/Units 03:10 WBC 8.9 (4.3-11.1) K/mcL Hgb 8.1 L (12.9-16.9) g/dL Hct 24.4 L (37.5-50.1) % Plt Count 353 (140-400) K/mcL BMP 11/04/16 03:10 Sodium 137 Potassium 3.3 L Chloride 109 Carbon Dioxide 19 BUN 26 Creatinine 1.27 H Glucose 172 H Calcium 8.4 L - Attending Attestation Okay to be discharged. Please refer to the discharge summary from November 01 in its addendum I examined this patient and my medical decision-making was reviewed with the SANDER OPERATOR/PA/Advanced Practice Nurse/Resident Physician. I agree with the documented findings, disposition and treatment plan as described except to the extent set forth below.
[2016-11-04] MEDS ORDERED: Vancomycin 750 MG in D5% in Water 250 ML IVPB SCH ×2 (16:00→19:30)
[2016-11-04] MEDS ORDERED: Cefepime HCl 1,000 MG in D5% in Water (Mini-Bag+) 100 ML IVPB SCH (18:00)
[2016-11-04] MEDS: Insulin DETEMIR 100 UNIT/ML X5UNITS SQ SCH (21:46)
[2016-11-05] MEDS: 0.9 % Sodium Chloride 1,000 ML IVC SCH ×2 (01:31→22:12)
--- NOTE | 2016-11-05 08:10 | Internal Med Progress Note ---
<HoangMark - Last Filed: 11/05/16 15:16> Date of Encounter: 11/05/16 Time of Encounter: 08:10 - Assessment and plan (1) Anemia Current Visit: Yes Status: Acute Assessment and plan: 11/05/16 stable 11/04/16 Acute anemia, likely dilutional due to prior dehydration Continue omeprazole, ordered Hemoccult Consider holding aspirin if blood loss verified Qualifiers: Anemia type: other cause Other causes of anemia: other cause, not classified Qualified Code(s): D64.89 - Other specified anemias (2) Healthcare associated bacterial pneumonia Current Visit: No Status: Acute Assessment and plan: 11/05/16 stable 11/04/16 Metabolic encephalopathy secondary to sepsis due to healthcare associated pneumonia present upon admission/MRSA pneumonia, history of MRSA in sputum, also positive for Mela (not albicans) in his urine culture Continue fluconazole day 4. WIll continue outpatient for total 14 days. Chest x-ray shows a retrocardiac opacity. Finished 8 days of abx with vancomycin and cefepime. 1 out of 2 bottles of his blood cultures are growing possible MRSA, unlikely bacteremia, possible contamination of the blood culture. 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 VRE las time was sensitive to ampicillin, consider starting ampicillin or gentamicin if worse, was also sensitive to nitrofurantoin Current urine culture shows mixed lenny unable to identify. High risk due to sepsis History of diabetes type 2 insulin-dependent, CAD/CABG 3, CKD3, multiple CVAs TIAs, history of bladder carcinoma, indwelling suprapubic catheter and now has a urostomy bag, chronic recurrent urinary tract infections, chronic systolic CHF with an ejection fraction less than 25% (3) Chronic systolic heart failure Current Visit: No Status: Chronic Assessment and plan: EF 25 % Resumed lasix , was held due to dehydration (4) Diabetes mellitus Current Visit: No Status: Chronic Assessment and plan: Controlled. Continue insulin sliding scale Qualifiers: Diabetes mellitus type: type 2 Diabetes mellitus complication status: with hyperglycemia Diabetes mellitus skilled nursing insulin use: with skilled nursing use Qualified Code(s): E11.65 - Type 2 diabetes mellitus with hyperglycemia; Z79.4 - prison (current) use of insulin (5) Generalized weakness Current Visit: No Status: Chronic (6) History of CVA (cerebrovascular accident) Current Visit: No Status: Chronic Assessment and plan: Continue aspirin (7) History of coronary artery bypass graft Current Visit: No Status: Chronic Assessment and plan: Continue Coreg, Lipitor and aspirin (8) Sepsis Current Visit: No Status: Resolved Assessment and plan: 11/05/16 Afebrile, normal heart rate/respirations Continue plan as below 11/04/16 possibley 2nd to MRSA pneumonia, or UTI 2nd to VRE or candidia. Finished 8 dyas of abx. Continue fluconazole outpatient. Qualifiers: Sepsis type: sepsis due to unspecified organism Qualified Code(s): A41.9 - Sepsis, unspecified organism - Subjective Interval history: Patient seen and examined at bedside this morning. He denies any new complaints. He is awaiting placement to a nursing facility - Constitutional Vitals: Temp Pulse Resp BP Pulse Ox 98.2 F 64 16 116/55 94 L 11/05/16 08:04 11/05/16 08:04 11/05/16 08:04 11/05/16 08:04 11/05/16 08:04 General appearance: Present: cachectic, A&O X 2, underweight - Head Head exam: Present: atraumatic, normocephalic - Eye Eye exam: Present: PERRL, conjuntiva pink, sclera anicteric Pupils: Present: PERRL - Neck Neck exam general surgery: Present: supple, trachea midline. Absent: lymphadenopathy - Respiratory Respiratory exam: Present: CTAB. Absent: accessory muscle use, rales, rhonchi, wheezes - Cardiovascular Cardiovascular exam: Present: RRR, +S1, +S2. Absent: diastolic murmur, gallop, rubs, systolic murmur - GI/Abdominal GI/Abdominal exam: Present: normal bowel sounds, soft, no peritoneal signs. Absent: distended, tenderness - Extremities Exam Extremities exam: Present: warm, radial pulses palpable and symetrical. Absent : calf tenderness, cyanotic, pedal edema - Neurological Exam Neurological exam: Present: CN II-XII intact, oriented X3, no focal deficits. Absent: pronater drift, facial droop, speech deficit - Skin Skin exam: Present: dry, intact Internal Medicine: Result - Labs CBC & Chem 7: 11/04/16 03:10 11/04/16 03:10 - VTE Documentation of Mechanical Device: Intermittent pneumatic compression device Consult Discharge Plan - Plan Instructions: Furosemide (By mouth), Decongestant/Expectorant (By mouth), Omeprazole (By mouth), Fluconazole (By mouth), Urinary Tract Infection in Men ( DC), Anemia (GEN), Pneumonia (DC) Additional Instructions: Follow with primary care physician within the next 7 days. Complete doses of cefepime for 3 more days and vancomycin IV for 2 more days. Continue fluconazole oral to complete 2 weeks. Referrals: Rodrick Vázquez MD [Primary Care Provider] - ([facility] will [facility] Prescriptions: Fluconazole [Diflucan] 100 mg PO DAILY #14 tablet Furosemide [Lasix] 20 mg PO DAILY #30 tablet Guaifenesin [Mucinex] 1,200 mg PO BID #30 tab.er.12h Omeprazole [PriLOSEC] 40 mg PO DAILY #30 capsule.Antwan Luna P - Last Filed: 11/05/16 17:52> Date of Encounter: 11/05/16 - Constitutional Vitals: Temp Pulse Resp BP Pulse Ox 97.7 F 72 18 106/69 94 L 11/05/16 16:00 11/05/16 16:00 11/05/16 16:00 11/05/16 16:00 11/05/16 16:00 Internal Medicine: Result - Labs CBC & Chem 7: 11/04/16 03:10 11/04/16 03:10 - Attending Attestation I examined this patient and my medical decision-making was reviewed with the PET TRAINER/PA/Advanced Practice Nurse/Resident Physician. I agree with the documented findings, disposition and treatment plan as described except to the extent set forth below.
[2016-11-05] MEDS: Insulin LISPRO 300 UNITS/3 ML VIAL SQ SCH ×5 (08:15→22:12)
[2016-11-05] MEDS: Aspirin Enteric Coated 81 MG Tablet PO SCH (08:16)
[2016-11-05] MEDS: Lactobacillus 1 EACH CAP.SPRINK PO SCH ×2 (08:16→22:11)
[2016-11-05] MEDS: Fluconazole 100 MG TABLET PO SCH (08:16)
[2016-11-05] MEDS: Gabapentin 100 MG CAPSULE PO SCH ×3 (08:17→22:11)
[2016-11-05] MEDS: Furosemide 40 MG/4 ML VIAL IV SCH (08:18)
[2016-11-05] MEDS: Insulin DETEMIR 100 UNIT/ML X5UNITS SQ SCH (22:11)
[2016-11-06] MEDS: Insulin LISPRO 300 UNITS/3 ML VIAL SQ SCH ×4 (09:31→23:31)
[2016-11-06] MEDS: Fluconazole 100 MG TABLET PO SCH (09:32)
[2016-11-06] MEDS: Lactobacillus 1 EACH CAP.SPRINK PO SCH ×2 (09:32→21:37)
[2016-11-06] MEDS: Aspirin Enteric Coated 81 MG Tablet PO SCH (09:32)
[2016-11-06] MEDS: Gabapentin 100 MG CAPSULE PO SCH ×3 (09:33→21:37)
[2016-11-06] MEDS: Furosemide 40 MG/4 ML VIAL IV SCH (09:33)
--- NOTE | 2016-11-06 16:45 | Internal Med Progress Note ---
<Chapo Rosasssviola Rosario - Last Filed: 11/06/16 17:52> Date of Encounter: 11/06/16 Time of Encounter: 14:00 - Assessment and plan (1) Anemia Current Visit: Yes Status: Acute Assessment and plan: 11/06/16 Stable 11/05/16 stable 11/04/16 Acute anemia, likely dilutional due to prior dehydration Continue omeprazole, ordered Hemoccult Consider holding aspirin if blood loss verified Qualifiers: Anemia type: other cause Other causes of anemia: other cause, not classified Qualified Code(s): D64.89 - Other specified anemias (2) Healthcare associated bacterial pneumonia Current Visit: No Status: Acute Assessment and plan: 11/06/16 Patient has completed appropriate antibiotics Will follow results of repeat blood culture 11/05/16 stable 11/04/16 Metabolic encephalopathy secondary to sepsis due to healthcare associated pneumonia present upon admission/MRSA pneumonia, history of MRSA in sputum, also positive for Mela (not albicans) in his urine culture Continue fluconazole day 4. WIll continue outpatient for total 14 days. Chest x-ray shows a retrocardiac opacity. Finished 8 days of abx with vancomycin and cefepime. 1 out of 2 bottles of his blood cultures are growing possible MRSA, unlikely bacteremia, possible contamination of the blood culture. 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 VRE las time was sensitive to ampicillin, consider starting ampicillin or gentamicin if worse, was also sensitive to nitrofurantoin Current urine culture shows mixed lenny unable to identify. High risk due to sepsis History of diabetes type 2 insulin-dependent, CAD/CABG 3, CKD3, multiple CVAs TIAs, history of bladder carcinoma, indwelling suprapubic catheter and now has a urostomy bag, chronic recurrent urinary tract infections, chronic systolic CHF with an ejection fraction less than 25% (3) Chronic systolic heart failure Current Visit: No Status: Chronic Assessment and plan: ECHO with EF 45-50% Resumed lasix, was held due to dehydration (4) Diabetes mellitus Current Visit: No Status: Chronic Assessment and plan: Controlled. Continue insulin sliding scale Qualifiers: Diabetes mellitus type: type 2 Diabetes mellitus complication status: with hyperglycemia Diabetes mellitus nursing home insulin use: with intermediate manager use Qualified Code(s): E11.65 - Type 2 diabetes mellitus with hyperglycemia; Z79.4 - [facility] (current) use of insulin (5) Generalized weakness Current Visit: No Status: Chronic (6) History of CVA (cerebrovascular accident) Current Visit: No Status: Chronic Assessment and plan: Continue aspirin (7) History of coronary artery bypass graft Current Visit: No Status: Chronic Assessment and plan: Continue Coreg, Lipitor and aspirin - Time Spent With Patient 25 - 35 minutes (25 minutes including time with patient and coordinating care) - Subjective Interval history: Patient is resting in bed at time of interview. he states that he feels the same as yesterday. He denies chest pain, but admits to pain with deep inspiration or cough. He comlains that he has not had a bowel movement in 4-5 days. - Constitutional Vitals: Temp Pulse Resp BP Pulse Ox 97.8 F 66 18 106/53 95 11/06/16 15:54 11/06/16 15:54 11/06/16 15:54 11/06/16 15:54 11/06/16 15:54 General appearance: Present: cachectic, disheveled, A&O X 3, pleasant, answers questions appropriately - Head Head exam: Present: atraumatic, normocephalic - Eye Eye exam: Present: PERRL, conjuntiva pink, sclera anicteric Pupils: Present: PERRL - Neck Neck exam general surgery: Present: supple, trachea midline. Absent: lymphadenopathy - Respiratory Respiratory exam: Present: wheezes. Absent: accessory muscle use, rales, rhonchi - Cardiovascular Cardiovascular exam: Present: RRR, +S1, +S2. Absent: diastolic murmur, gallop, rubs, systolic murmur - GI/Abdominal GI/Abdominal exam: Present: normal bowel sounds, soft, no peritoneal signs. Absent: distended, tenderness - Extremities Exam Extremities exam: Present: warm, radial pulses palpable and symetrical. Absent : calf tenderness, cyanotic, pedal edema Additional comments: Left arm muscles are atrophied. Left arm is held to chest in flexion. Patient states that he injured arm at the age of 15. - Neurological Exam Neurological exam: Present: CN II-XII intact, oriented X3, no focal deficits. Absent: facial droop, speech deficit - Skin Skin exam: Present: dry, intact Internal Medicine: Result - Labs CBC & Chem 7: 11/04/16 03:10 11/04/16 03:10 - Impressions Chest X-Ray 10/28/16 15:06 IMPRESSION: Patchy opacity in the retrocardiac left base, atelectasis or pneumonia. D/ / Aleksandar Cheek MD / Aleksandar Cheek MD Interpreting Provider: Aleksandar Cheek MD - VTE Documentation of Mechanical Device: Intermittent pneumatic compression device Consult Discharge Plan - Plan Instructions: Furosemide (By mouth), Decongestant/Expectorant (By mouth), Omeprazole (By mouth), Fluconazole (By mouth), Urinary Tract Infection in Men ( DC), Anemia (GEN), Pneumonia (DC) Additional Instructions: Follow with primary care physician within the next 7 days. Complete doses of cefepime for 3 more days and vancomycin IV for 2 more days. Continue fluconazole oral to complete 2 weeks. Referrals: Rodrick Vázquez MD [Primary Care Provider] - (Patient will follow up with the PCP at the [facility]) Prescriptions: Fluconazole [Diflucan] 100 mg PO DAILY #14 tablet Furosemide [Lasix] 20 mg PO DAILY #30 tablet Guaifenesin [Mucinex] 1,200 mg PO BID #30 tab.er.12h Omeprazole [PriLOSEC] 40 mg PO DAILY #30 capsule.Antwan Luna P - Last Filed: 11/06/16 18:37> - Constitutional Vitals: Temp Pulse Resp BP Pulse Ox 97.8 F 66 18 106/53 95 11/06/16 15:54 11/06/16 15:54 11/06/16 15:54 11/06/16 15:54 11/06/16 15:54 Internal Medicine: Result - Labs CBC & Chem 7: 11/04/16 03:10 11/04/16 03:10 - Attending Attestation I examined this patient and my medical decision-making was reviewed with the SEQUINS SPOOLER/PA/Advanced Practice Nurse/Resident Physician. I agree with the documented findings, disposition and treatment plan as described except to the extent set forth below. medically clear , awaiting placement
[2016-11-06] MEDS: 0.9 % Sodium Chloride 1,000 ML IVC SCH (18:18)
[2016-11-06] MEDS: Insulin DETEMIR 100 UNIT/ML X5UNITS SQ SCH (21:36)
--- NOTE | 2016-11-07 06:50 | Internal Med Progress Note ---
<Mark Bolton - Last Filed: 11/07/16 11:24> Date of Encounter: 11/07/16 Time of Encounter: 06:50 - Assessment and plan (1) Anemia Current Visit: Yes Status: Acute Assessment and plan: 11/06/16 Stable 11/05/16 stable 11/04/16 Acute anemia, likely dilutional due to prior dehydration Continue omeprazole, ordered Hemoccult Consider holding aspirin if blood loss verified Qualifiers: Anemia type: other cause Other causes of anemia: other cause, not classified Qualified Code(s): D64.89 - Other specified anemias (2) Healthcare associated bacterial pneumonia Current Visit: No Status: Acute Assessment and plan: 11/06/16 Patient has completed appropriate antibiotics Will follow results of repeat blood culture 11/05/16 stable 11/04/16 Metabolic encephalopathy secondary to sepsis due to healthcare associated pneumonia present upon admission/MRSA pneumonia, history of MRSA in sputum, also positive for Mela (not albicans) in his urine culture Continue fluconazole day 4. WIll continue outpatient for total 14 days. Chest x-ray shows a retrocardiac opacity. Finished 8 days of abx with vancomycin and cefepime. 1 out of 2 bottles of his blood cultures are growing possible MRSA, unlikely bacteremia, possible contamination of the blood culture. 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 VRE las time was sensitive to ampicillin, consider starting ampicillin or gentamicin if worse, was also sensitive to nitrofurantoin Current urine culture shows mixed lenny unable to identify. High risk due to sepsis History of diabetes type 2 insulin-dependent, CAD/CABG 3, CKD3, multiple CVAs TIAs, history of bladder carcinoma, indwelling suprapubic catheter and now has a urostomy bag, chronic recurrent urinary tract infections, chronic systolic CHF with an ejection fraction less than 25% (3) Chronic systolic heart failure Current Visit: No Status: Chronic Assessment and plan: ECHO with EF 45-50% Continue Lasix (4) Diabetes mellitus Current Visit: No Status: Chronic Assessment and plan: Controlled. Continue insulin sliding scale Qualifiers: Diabetes mellitus type: type 2 Diabetes mellitus complication status: with hyperglycemia Diabetes mellitus custodial insulin use: with continuous churn buttermaker use Qualified Code(s): E11.65 - Type 2 diabetes mellitus with hyperglycemia; Z79.4 - skilled nursing (current) use of insulin (5) Generalized weakness Current Visit: No Status: Chronic (6) History of CVA (cerebrovascular accident) Current Visit: No Status: Chronic Assessment and plan: Continue aspirin (7) History of coronary artery bypass graft Current Visit: No Status: Chronic Assessment and plan: Continue Coreg, Lipitor and aspirin - Subjective Interval history: Patient seen and examined at bedside this morning. No new complaints. He is awaiting placement to a nursing facility - Constitutional Vitals: Temp Pulse Resp BP Pulse Ox 98.2 F 74 19 113/62 94 L 11/07/16 06:46 11/07/16 06:46 11/07/16 06:46 11/07/16 06:46 11/07/16 06:46 General appearance: Present: cachectic, disheveled, A&O X 3, pleasant, answers questions appropriately - Head Head exam: Present: atraumatic, normocephalic - Eye Eye exam: Present: PERRL, conjuntiva pink, sclera anicteric Pupils: Present: PERRL - Neck Neck exam general surgery: Present: supple, trachea midline. Absent: lymphadenopathy - Respiratory Respiratory exam: Present: CTAB. Absent: accessory muscle use, rales, rhonchi, wheezes - Cardiovascular Cardiovascular exam: Present: RRR, +S1, +S2. Absent: diastolic murmur, gallop, rubs, systolic murmur - GI/Abdominal GI/Abdominal exam: Present: normal bowel sounds, soft, no peritoneal signs. Absent: distended, tenderness - Extremities Exam Extremities exam: Present: warm, radial pulses palpable and symetrical. Absent : calf tenderness, cyanotic, pedal edema - Neurological Exam Neurological exam: Present: CN II-XII intact, oriented X3, no focal deficits. Absent: pronater drift, facial droop, speech deficit - Skin Skin exam: Present: dry, intact Internal Medicine: Result - Labs CBC & Chem 7: 11/04/16 03:10 11/04/16 03:10 - VTE Documentation of Mechanical Device: Intermittent pneumatic compression device Consult Discharge Plan - Plan Instructions: Furosemide (By mouth), Decongestant/Expectorant (By mouth), Omeprazole (By mouth), Fluconazole (By mouth), Urinary Tract Infection in Men ( DC), Anemia (GEN), Pneumonia (DC) Additional Instructions: Follow with primary care physician within the next 7 days. Complete doses of cefepime for 3 more days and vancomycin IV for 2 more days. Continue fluconazole oral to complete 2 weeks. Referrals: Rodrick Vázquez MD [Primary Care Provider] - (Patient will follow up with the PCP at the [facility]) Prescriptions: Fluconazole [Diflucan] 100 mg PO DAILY #14 tablet Furosemide [Lasix] 20 mg PO DAILY #30 tablet Guaifenesin [Mucinex] 1,200 mg PO BID #30 tab.er.12h Omeprazole [PriLOSEC] 40 mg PO DAILY #30 capsule. <Antwan Crowley P - Last Filed: 11/07/16 17:43> - Constitutional Vitals: Temp Pulse Resp BP Pulse Ox 98.1 F 66 18 123/65 94 L 11/07/16 16:27 11/07/16 16:27 11/07/16 16:27 11/07/16 16:27 11/07/16 16:27 Internal Medicine: Result - Labs CBC & Chem 7: 11/07/16 14:39 11/07/16 14:39 Labs: Short CBC 11/07/16 Range/Units 14:39 WBC 9.0 (4.3-11.1) K/mcL Hgb 8.6 L (12.9-16.9) g/dL Hct 26.2 L (37.5-50.1) % Plt Count 421 H (140-400) K/mcL Neutrophils # 6.1 (1.6-8.9) K/mcL BMP 11/07/16 14:39 Sodium 137 Potassium 3.5 Chloride 104 Carbon Dioxide 23 BUN 27 H Creatinine 1.26 H Glucose 276 H Calcium 8.4 L - Attending Attestation I examined this patient and my medical decision-making was reviewed with the CORPORATE PHYSICAL SECURITY SUPERVISOR/PA/Advanced Practice Nurse/Resident Physician. I agree with the documented findings, disposition and treatment plan as described except to the extent set forth below. pending insurance approval.
[2016-11-07] MEDS: Lactobacillus 1 EACH CAP.SPRINK PO SCH ×2 (09:03→22:18)
[2016-11-07] MEDS: Fluconazole 100 MG TABLET PO SCH (09:05)
[2016-11-07] MEDS: Aspirin Enteric Coated 81 MG Tablet PO SCH (09:06)
[2016-11-07] MEDS: Furosemide 40 MG/4 ML VIAL IV SCH (09:07)
[2016-11-07] MEDS: Insulin LISPRO 300 UNITS/3 ML VIAL SQ SCH ×4 (09:08→22:17)
[2016-11-07] MEDS: Gabapentin 100 MG CAPSULE PO SCH ×3 (09:09→22:18)
[2016-11-07] MEDS: 0.9 % Sodium Chloride 1,000 ML IVC SCH (14:43)
[2016-11-07 14:54] LABS: Basophils # 0.1 K/mcL (0.0-0.2); Basophils % 0.7 %; Eosinophils # 0.5 K/mcL (0.0-0.6); Eosinophils % 5.2 %; Hematocrit 26.2 % (37.5-50.1); Hemoglobin 8.6 g/dL (12.9-16.9); Immature Granulocytes % 0.7 % (0-4); Lymphocytes # 1.5 K/mcL (0.6-4.6); Mean Corpuscular HGB Conc 32.8 g/dL (31.6-35.5); Mean Corpuscular Hemoglobin 28.8 pg (28.0-33.3); Mean Corpuscular Volume 87.6 fL (83.0-100.0); Mean Platelet Volume 10.1 fL (9.4-12.4); Monocytes # 0.8 K/mcL (0.0-1.3); Monocytes % 9.1 %; Neutrophils # 6.1 K/mcL (1.6-8.9); Platelet Count 421 K/mcL (140-400); Red Blood Count 2.99 M/mcL (4.19-5.50); Red Cell Distribution Width 15.1 % (11.5-14.5); Segmented Neutrophils % 67.3 %
[2016-11-07 15:07] LABS: BUN/Creatinine Ratio 21 (6-26); Blood Urea Nitrogen 27 mg/dL (8-26); Calcium 8.4 mg/dL (8.6-10.8); Carbon Dioxide 23 mEq/L (19-29); Chloride 104 mEq/L (98-109); Glucose 276 mg/dL (70-99); Osmolality,Calculated 299 (280-300); Potassium 3.5 mEq/L (3.5-4.5); Sodium 137 mEq/L (136-145); eGFR For African Americans > 60 (> 60); eGFR For Non-African Americans 55 (> 60)
[2016-11-07] MEDS: Insulin DETEMIR 100 UNIT/ML X5UNITS SQ SCH (22:17)
[2016-11-08] MEDS ORDERED: Bisacodyl 10 MG RECTAL SUPPOSITORY RC PRN (06:29)
--- NOTE | 2016-11-08 07:13 | Internal Med Progress Note ---
<Mark Bolton - Last Filed: 11/08/16 09:59> Date of Encounter: 11/08/16 Time of Encounter: 07:13 - Assessment and plan (1) Anemia Current Visit: Yes Status: Acute Assessment and plan: Stable 11/05/16 stable 11/04/16 Acute anemia, likely dilutional due to prior dehydration Continue omeprazole, ordered Hemoccult Consider holding aspirin if blood loss verified Qualifiers: Anemia type: other cause Other causes of anemia: other cause, not classified Qualified Code(s): D64.89 - Other specified anemias (2) Healthcare associated bacterial pneumonia Current Visit: No Status: Acute Assessment and plan: Patient has completed appropriate antibiotics Repeat blood culture pending 11/05/16 stable 11/04/16 Metabolic encephalopathy secondary to sepsis due to healthcare associated pneumonia present upon admission/MRSA pneumonia, history of MRSA in sputum, also positive for Mela (not albicans) in his urine culture Continue fluconazole day 4. WIll continue outpatient for total 14 days. Chest x-ray shows a retrocardiac opacity. Finished 8 days of abx with vancomycin and cefepime. 1 out of 2 bottles of his blood cultures are growing possible MRSA, unlikely bacteremia, possible contamination of the blood culture. 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 VRE las time was sensitive to ampicillin, consider starting ampicillin or gentamicin if worse, was also sensitive to nitrofurantoin Current urine culture shows mixed lenny unable to identify. High risk due to sepsis History of diabetes type 2 insulin-dependent, CAD/CABG 3, CKD3, multiple CVAs TIAs, history of bladder carcinoma, indwelling suprapubic catheter and now has a urostomy bag, chronic recurrent urinary tract infections, chronic systolic CHF with an ejection fraction less than 25% (3) Chronic systolic heart failure Current Visit: No Status: Chronic Assessment and plan: ECHO with EF 45-50% Continue Lasix (4) Diabetes mellitus Current Visit: No Status: Chronic Assessment and plan: Controlled. Continue insulin sliding scale Qualifiers: Diabetes mellitus type: type 2 Diabetes mellitus complication status: with hyperglycemia Diabetes mellitus retirement insulin use: with intermediate project manager use Qualified Code(s): E11.65 - Type 2 diabetes mellitus with hyperglycemia; Z79.4 - termite technician (current) use of insulin (5) Generalized weakness Current Visit: No Status: Chronic (6) History of CVA (cerebrovascular accident) Current Visit: No Status: Chronic Assessment and plan: Continue aspirin (7) History of coronary artery bypass graft Current Visit: No Status: Chronic Assessment and plan: Continue Coreg, Lipitor and aspirin - Subjective Interval history: Patient seen and examined at bedside this morning. He denies any new complaints. He is awaiting placement to a nursing facility - Constitutional Vitals: Temp Pulse Resp BP Pulse Ox 98.1 F 73 20 87/46 93 L 11/08/16 06:06 11/08/16 06:06 11/08/16 06:06 11/08/16 06:06 11/08/16 06:06 General appearance: Present: cachectic, disheveled, A&O X 3, pleasant, answers questions appropriately - Head Head exam: Present: atraumatic, normocephalic - Eye Eye exam: Present: PERRL, conjuntiva pink, sclera anicteric Pupils: Present: PERRL - Neck Neck exam general surgery: Present: supple, trachea midline. Absent: lymphadenopathy - Respiratory Respiratory exam: Present: CTAB. Absent: accessory muscle use, rales, rhonchi, wheezes - Cardiovascular Cardiovascular exam: Present: RRR, +S1, +S2. Absent: diastolic murmur, gallop, rubs, systolic murmur - GI/Abdominal GI/Abdominal exam: Present: normal bowel sounds, soft, no peritoneal signs. Absent: distended, tenderness - Extremities Exam Extremities exam: Present: warm, radial pulses palpable and symetrical. Absent : calf tenderness, cyanotic, pedal edema - Neurological Exam Neurological exam: Present: CN II-XII intact, oriented X3, no focal deficits. Absent: pronater drift, facial droop, speech deficit - Skin Skin exam: Present: dry, intact Internal Medicine: Result - Labs CBC & Chem 7: 11/07/16 14:39 11/07/16 14:39 Labs: Short CBC 11/07/16 Range/Units 14:39 WBC 9.0 (4.3-11.1) K/mcL Hgb 8.6 L (12.9-16.9) g/dL Hct 26.2 L (37.5-50.1) % Plt Count 421 H (140-400) K/mcL Neutrophils # 6.1 (1.6-8.9) K/mcL BMP 11/07/16 14:39 Sodium 137 Potassium 3.5 Chloride 104 Carbon Dioxide 23 BUN 27 H Creatinine 1.26 H Glucose 276 H Calcium 8.4 L - VTE Documentation of Mechanical Device: Intermittent pneumatic compression device Consult Discharge Plan - Plan Instructions: Furosemide (By mouth), Decongestant/Expectorant (By mouth), Omeprazole (By mouth), Fluconazole (By mouth), Urinary Tract Infection in Men ( DC), Anemia (GEN), Pneumonia (DC) Additional Instructions: Follow with primary care physician within the next 7 days. Complete doses of cefepime for 3 more days and vancomycin IV for 2 more days. Continue fluconazole oral to complete 2 weeks. Referrals: Rodrick Vázqeuz MD [Primary Care Provider] - (Patient will follow up with the PCP at the [facility]) Prescriptions: Fluconazole [Diflucan] 100 mg PO DAILY #14 tablet Furosemide [Lasix] 20 mg PO DAILY #30 tablet Guaifenesin [Mucinex] 1,200 mg PO BID #30 tab.er.12h Omeprazole [PriLOSEC] 40 mg PO DAILY #30 capsule.Antwan Luna P - Last Filed: 11/08/16 18:21> - Constitutional Vitals: Temp Pulse Resp BP Pulse Ox 98.0 F 57 15 106/57 96 11/08/16 15:50 11/08/16 15:50 11/08/16 15:50 11/08/16 15:50 11/08/16 15:50 Internal Medicine: Result - Labs CBC & Chem 7: 11/07/16 14:39 11/07/16 14:39 - Attending Attestation I examined this patient and my medical decision-making was reviewed with the CARPET LOOM FIXER/PA/Advanced Practice Nurse/Resident Physician. I agree with the documented findings, disposition and treatment plan as described except to the extent set forth below. medically clear, pending placement.
[2016-11-08] MEDS: Gabapentin 100 MG CAPSULE PO SCH ×3 (08:29→21:54)
[2016-11-08] MEDS: Aspirin Enteric Coated 81 MG Tablet PO SCH (08:30)
[2016-11-08] MEDS: Insulin LISPRO 300 UNITS/3 ML VIAL SQ SCH ×4 (08:31→21:24)
[2016-11-08] MEDS: Lactobacillus 1 EACH CAP.SPRINK PO SCH ×2 (08:31→21:57)
[2016-11-08] MEDS: Fluconazole 100 MG TABLET PO SCH (08:31)
[2016-11-08] MEDS: Furosemide 20 MG TABLET PO SCH (08:31)
[2016-11-08] MEDS: 0.9 % Sodium Chloride 1,000 ML IVC SCH (10:53)
--- NOTE | 2016-11-08 16:09 | Palliative - Consult Note ---
Date of Encounter: 11/08/16 Time of Encounter: 14:00 - Assessment and Plan (1) Goals of care, counseling/discussion Current Visit: Yes Status: Acute Assessment and plan: Plan for family meeting to discuss alternative options for Friday (11/09/16 at 10:00). (2) Community acquired pneumonia Current Visit: Yes Status: Acute Assessment and plan: Completed course of ATB (3) Failure to thrive Current Visit: Yes Status: Acute Assessment and plan: Encourage PT/OT, meal preferences, Dietitian following, Ensure BID. Qualifiers: Failure to thrive age range: in adult Qualified Code(s): R62.7 - Adult failure to thrive Palliative-CN HPI - Data of Consult Patient: new to practice Consult date: 11/08/16 Requesting Physician: Antwan Crowley MD Primary Care Provider: Rodrick Vázquez MD - Consult Narrative Palliative Care/Comfort Measures: Palliative care Reason for consult: Goals of care History of present illness: Mr. Herron is a 81 year old male with an extended hospital stay. He was initially admitted for healthcare acquired pneumonia/Sepsis. He was treated with a course of ATB therapy with plans to discharge to nursing facility for rehab. Mr. Herron's continued stay was pending insurance approval of [facility]. Insurance denied his request for further care at the [facility]. The palliative care team was consulted to discuss further options for care. Mr. Herron has been staying with his daughter, Carine Aponte, prior to admission. He was able to ambulate cautiously with a walker prior to admission. Mr. Herron has had several falls the 2 weeks prior to admission. Overall, he reports a 40 # weight loss since 08/2016. He describes himself as "skin and bones" with poor muscle tone and endurance. Mr. Herron has a poor appetite and requires several naps throughout the day. He also complains of intermittent constipation. CC: Antwan Crowley MD Past Med Surg Social Fam HX - Past Medical History Medical history: arthritis, cancer, cardiomyopathy, CHF, COPD, coronary artery disease, CVA, diabetes, GERD, hyperlipidemia, hypertension, malignancy, myocardial infarction, osteoporosis, peripheral artery disease, renal disease, TIA, valvular heart disease, other Psychiatric history: anxiety, depression, other - Past Surgical History Surgical History: angioplasty/stent, cancer surgery, coronary bypass (CABG), orthopedic, other, ureteral stent, other - Social History Smoking Status: Former smoker Smokeless Tobacco Status: No Alcohol use: none Drug use: none - Family History Mother Family Member Ethnicity: Non- Living Status: Hx Family Cardiac Disorders: No Hx Family Respiratory Disorders: No Hx Family Cancer: No Hx Family GI Disorders: No Hx Family Endocrine Disorder: No Hx Family Neuromuscular Disorders: No Hx Family Neurologic Disorders: No Hx Family HEENT Disorders: No Hx Family Autoimmune Disorders: No Father Family Member Ethnicity: Non- Living Status: Hx Family Cardiac Disorders: Yes Hx Family Respiratory Disorders: No Hx Family Cancer: No Hx Family GI Disorders: No Hx Family Endocrine Disorder: No Hx Family Neuromuscular Disorders: No Hx Family Neurologic Disorders: No Hx Family HEENT Disorders: No Hx Family Autoimmune Disorders: No Medications and Allergies Aspirin [Adult Low Dose Aspirin EC] 81 mg PO DAILY 10/16/15 [History] Atorvastatin [Lipitor] 40 mg PO HS 10/16/15 [History] Clopidogrel [Plavix] 75 mg PO DAILY #30 tablet 04/18/16 [Rx] Gabapentin [Neurontin] 300 mg PO TID PRN 06/12/16 [History] Insulin ASPART [Novolog Flexpen] 5 - 10 unit SQ TIDAC 06/12/16 [History] Lisinopril 2.5 mg PO DAILY 06/12/16 [History] Meclizine HCl [Verticalm] 25 mg PO TID PRN 06/12/16 [History] Benzonatate [Tessalon] 200 mg PO TID PRN #0 capsule 06/20/16 [Rx] Insulin DETEMIR [Levemir] 10 unit SQ HS [id number] 06/20/16 [Rx] Carvedilol 3.125 mg PO BID 08/09/16 [History] Metformin [Glucophage] 1,000 mg PO BIDWM 08/09/16 [History] Polyethylene Glycol 3350 [MiraLAX] 17 gm PO DAILY PRN 10/28/16 [History] Promethazine [Phenergan] 25 mg PO Q8HR PRN 10/28/16 [History] Fluconazole [Diflucan] 100 mg PO DAILY #14 tablet 11/01/16 [Rx] Furosemide [Lasix] 20 mg PO DAILY #30 tablet 11/01/16 [Rx] Guaifenesin [Mucinex] 1,200 mg PO BID #30 tab.er.12h 11/01/16 [Rx] Omeprazole [PriLOSEC] 40 mg PO DAILY #30 capsule.dr 11/01/16 [Rx] Allergies Sulfa (Sulfonamide Antibiotics) Allergy (Verified 04/13/16 10:53) Rash - Constitutional Constitutional ROS PAL: decreased appetite, fatigue, frequent falls, weight loss - EENT Eyes: no change in vision Ears: no decreased hearing Ears, nose, mouth, throat: no dysphagia, no mouth pain, no sore throat - Cardiovascular Cardiovascular ROS: dyspnea on exertion, no chest pain, no chest pain with activity, no palpitations, no pedal edema - Respiratory Respiratory: cough, dyspnea on exertion - Gastrointestinal Gastrointestinal: constipation, no diarrhea, no nausea, no vomiting - Genitourinary Genitourinary ROS male: other (chronic craig) - Musculoskeletal Musculoskeletal ROS IM: arthralgias, muscle weakness - Integumentary ROS Integumentary: no sores - Neurological Neurological ROS: confusion, memory loss, weakness (global) - Psychiatric Psychiatric general PM: depression, no anxiety Palliative Care-Exam - Constitutional Vitals: Temp Pulse Resp BP Pulse Ox 97.9 F 79 14 130/68 96 11/08/16 12:27 11/08/16 12:27 11/08/16 12:27 11/08/16 12:27 11/08/16 12:27 Exam: 81 year old chronically ill appearing male patient. - Head Head Exam: Present: atraumatic - Eye Eye exam: Present: EOMI Pupils: Present: PERRL - ENT ENT exam: Present: mucous membranes moist - Neck Neck exam: Present: normal inspection - Respiratory Respiratory exam: Present: decreased breath sounds. Absent: accessory muscle use, respiratory distress Additional comments: moist non-productive cough - Cardiovascular Cardiovascular exam: Present: RRR - GI/Abdominal Exam GI/Abdominal exam: Present: diminished bowel sounds, normal bowel sounds, soft. Absent: tenderness - Rectal Rectal Exam: Present: deferred - Catheter Type: Urethral (Craig) (chronic) - Extremities Exam Extremities exam: Absent: normal inspection (poor muscle tone) - Neurological Exam Neurological exam: Present: alert, oriented X3, strengths equal and symetr throughout (global weakness) - Psychiatric Psychiatric exam: Present: flat affect - Skin Skin exam: Present: dry, warm Additional comments: Allevyn dressing intact to sacral area Internal Medicine - CN: Reslt - Labs CBC & Chem 7: 11/09/16 06:55 11/09/16 06:55 Consult Discharge Plan - Plan Instructions: Furosemide (By mouth), Decongestant/Expectorant (By mouth), Omeprazole (By mouth), Fluconazole (By mouth), Urinary Tract Infection in Men ( DC), Anemia (GEN), Pneumonia (DC) Additional Instructions: Follow with primary care physician within the next 7 days. Complete doses of cefepime for 3 more days and vancomycin IV for 2 more days. Continue fluconazole oral to complete 2 weeks. Referrals: Rodrick Vázquez MD [Primary Care Provider] - (Patient will follow up with the PCP at the [facility]) Prescriptions: Fluconazole [Diflucan] 100 mg PO DAILY #14 tablet Furosemide [Lasix] 20 mg PO DAILY #30 tablet Guaifenesin [Mucinex] 1,200 mg PO BID #30 tab.er.12h Omeprazole [PriLOSEC] 40 mg PO DAILY #30 capsule. Palliative Quality Palliative Quality: Screen for Code Status: No (will address during family meeting), Screen for Goals of Care: No, Screen for Pain: Yes, If Pain Regimen Started, Initiate Bowel Regimen: Yes, Screen for Nausea/Vomitting: Yes
[2016-11-08] MEDS: Insulin DETEMIR 100 UNIT/ML X5UNITS SQ SCH (21:53)
[2016-11-09] MEDS: 0.9 % Sodium Chloride 1,000 ML IVC SCH (06:28)
[2016-11-09 07:22] LABS: BUN/Creatinine Ratio 20 (6-26); Blood Urea Nitrogen 25 mg/dL (8-26); Calcium 8.3 mg/dL (8.6-10.8); Carbon Dioxide 21 mEq/L (19-29); Chloride 105 mEq/L (98-109); Glucose 379 mg/dL (70-99); Osmolality,Calculated 304 (280-300); Potassium 4.4 mEq/L (3.5-4.5); Sodium 137 mEq/L (136-145); eGFR For African Americans > 60 (> 60); eGFR For Non-African Americans 54 (> 60)
[2016-11-09 07:25] LABS: Basophils # 0.1 K/mcL (0.0-0.2); Basophils % 0.8 %; Eosinophils # 0.5 K/mcL (0.0-0.6); Eosinophils % 6.5 %; Hematocrit 23.4 % (37.5-50.1); Hemoglobin 7.5 g/dL (12.9-16.9); Immature Granulocytes % 0.4 % (0-4); Lymphocytes # 1.5 K/mcL (0.6-4.6); Lymphocytes % 19.2 %; Mean Corpuscular HGB Conc 32.1 g/dL (31.6-35.5); Mean Corpuscular Hemoglobin 28.8 pg (28.0-33.3); Mean Platelet Volume 10.5 fL (9.4-12.4); Monocytes # 0.6 K/mcL (0.0-1.3); Monocytes % 8.4 %; Platelet Count 366 K/mcL (140-400); Red Cell Distribution Width 14.9 % (11.5-14.5); Segmented Neutrophils % 64.7 %
[2016-11-09] MEDS: Insulin LISPRO 300 UNITS/3 ML VIAL SQ SCH ×4 (08:22→22:36)
[2016-11-09] MEDS: Fluconazole 100 MG TABLET PO SCH (08:23)
[2016-11-09] MEDS: Lactobacillus 1 EACH CAP.SPRINK PO SCH ×2 (08:23→22:48)
[2016-11-09] MEDS: Aspirin Enteric Coated 81 MG Tablet PO SCH (08:23)
[2016-11-09] MEDS: Gabapentin 100 MG CAPSULE PO SCH ×3 (08:24→22:49)
[2016-11-09] MEDS: Furosemide 20 MG TABLET PO SCH (08:24)
--- NOTE | 2016-11-09 11:39 | Palliative Progress Note ---
Date of Encounter: 11/09/16 Time of Encounter: 11:33 - Assessment and plan (1) Goals of care, counseling/discussion Current Visit: Yes Status: Acute Assessment and plan: Discussed code status with the patient and his daughter. Mr. Herron has elected to be a DNR-CC. In the presence of his daughter he indicated that he did not want to have heroic measures if his health declined. He did not want "life support". If his health should fail, he would want to focus on comfort measures only. State DNR form completed and copy provided to his daughter. In regards to discharge planning, Mr. Herron would like to transition to [facility] upon discharge. He understands that his insurance will likely not cover his stay at the [facility]. Mr. Herron is willing to file Medicaid. His daughter was present for this conversation. Hospice evaluation is requested. Will arrange for hospice meeting in the next 1-2 days with the patient and his family. Referral sent to [facility] per patient's daughter's request. Notified operations intelligence hospice nurse Filippo Redd of plan. Discussed with Hospitalist, manager social responsibility, and primary nurse. (2) Community acquired pneumonia Current Visit: Yes Status: Acute Assessment and plan: Stable (3) Failure to thrive Current Visit: Yes Status: Acute Assessment and plan: Encourage meals, Ensure, food of choice. Qualifiers: Failure to thrive age range: in adult Qualified Code(s): R62.7 - Adult failure to thrive - Time Spent With Patient Total time spent is greater than 50% in coordination of care (as documented) at patient's floor/unit and/or counseling patient: - Subjective Interval history: Mr. Herron is lying in bed with daughter at bedside. He denies complaints at this time. - Constitutional Vitals: Abnormal lab results RBC 2.60 M/mcL (4.19-5.50) L 11/09/16 06:55 Hgb 7.5 g/dL (12.9-16.9) L 11/09/16 06:55 Hct 23.4 % (37.5-50.1) L 11/09/16 06:55 RDW 14.9 % (11.5-14.5) H 11/09/16 06:55 Creatinine 1.27 mg/dL (0.72-1.25) H 11/09/16 06:55 Est GFR (Non-Af Amer) 54 (> 60) L 11/09/16 06:55 Glucose 379 mg/dL (70-99) H 11/09/16 06:55 POC Glucose 364 (58-89) H 11/09/16 08:00 Calculated Osmolality 304 (280-300) H 11/09/16 06:55 Calcium 8.3 mg/dL (8.6-10.8) L 11/09/16 06:55 C-Reactive Protein 240 mg/L (Less than 5) H 10/28/16 15:20 B-Natriuretic Peptide 169 pg/mL (0-100) H 10/29/16 06:19 Urine Clarity Turbid (Clear) A 10/30/16 09:15 Urine Protein 30 mg/dL (Neg-Trace) H 10/30/16 09:15 Ur Leukocyte Esterase Moderate (Negative) H 10/30/16 09:15 Urine Microscopic WBC 30-50 per hpf (0-3) H 10/30/16 09:15 Urine Bacteria Many per hpf (None-Few) H 10/30/16 09:15 Granular Casts Few per lpf (None Seen) H 10/30/16 09:15 Urine Yeast Moderate per hpf (None Seen) H 10/30/16 09:15 Ur Culture Indicated? YES (NO) A 10/30/16 09:15 Vancomycin Trough 23.6 mcg/mL (10-20) H* 11/04/16 18:22 Staphylococcus sp PCR DETECTED (Not Detect) A 10/28/16 15:20 MRS (TEM-PCR) DETECTED (Not Detect) A 10/28/16 15:20 General appearance: Present: cooperative, no acute distress Exam: 81 year old male patient appearing chronically ill. - ENT ENT exam: Present: mucous membranes dry - Respiratory Respiratory exam: Present: decreased breath sounds. Absent: accessory muscle use, respiratory distress - Cardiovascular Cardiovascular exam: Present: RRR - GI/Abdominal GI/Abdominal exam: Present: soft. Absent: tenderness - Extremities Exam Extremities exam: Present: normal inspection - Neurological Exam Neurological exam: Present: oriented X3, no focal deficits, strengths equal and symetr throughout (global weakness). Absent: alert - Psychiatric Psychiatric exam: Absent: agitated, anxious - Skin Skin exam: Present: dry, warm Palliative Quality Palliative Quality: Screen for Code Status: Yes, Screen for Goals of Care: Yes, Screen for Pain: Yes, If Pain Regimen Started, Initiate Bowel Regimen: Yes, Screen for Nausea/Vomitting: Yes Code Status: 10/28/16 21:49 Resuscitation Status: Active [RES] Routine Comment: Resuscitation Status: DNR-Comfort Care - Labs CBC & Chem 7: 11/09/16 06:55 11/09/16 06:55 Labs: Laboratory Results - last 24 hr 11/08/16 11/08/16 11/08/16 07:33 11:44 15:49 WBC RBC Hgb Hct MCV MCH MCHC RDW Plt Count MPV Immature Gran % Seg Neutrophils % Lymphocytes % Monocytes % Eosinophils % Basophils % Neutrophils # Lymphocytes # Monocytes # Eosinophils # Basophils # Sodium Potassium Chloride Carbon Dioxide BUN Creatinine Est GFR ( Amer) Est GFR (Non-Af Amer) BUN/Creatinine Ratio Glucose POC Glucose 147 H 78 178 H Calculated Osmolality Calcium 11/09/16 11/09/16 11/09/16 06:55 06:55 08:00 WBC 7.7 RBC 2.60 L Hgb 7.5 L Hct 23.4 L MCV 90.0 MCH 28.8 MCHC 32.1 RDW 14.9 H Plt Count 366 MPV 10.5 Immature Gran % 0.4 Seg Neutrophils % 64.7 Lymphocytes % 19.2 Monocytes % 8.4 Eosinophils % 6.5 Basophils % 0.8 Neutrophils # 5.0 Lymphocytes # 1.5 Monocytes # 0.6 Eosinophils # 0.5 Basophils # 0.1 Sodium 137 Potassium 4.4 Chloride 105 Carbon Dioxide 21 BUN 25 Creatinine 1.27 H Est GFR ( Amer) > 60 Est GFR (Non-Af Amer) 54 L BUN/Creatinine Ratio 20 Glucose 379 H POC Glucose 364 H Calculated Osmolality 304 H Calcium 8.3 L Consult Discharge Plan - Plan Instructions: Furosemide (By mouth), Decongestant/Expectorant (By mouth), Omeprazole (By mouth), Fluconazole (By mouth), Urinary Tract Infection in Men ( DC), Anemia (GEN), Pneumonia (DC) Additional Instructions: Follow with primary care physician within the next 7 days. Complete doses of cefepime for 3 more days and vancomycin IV for 2 more days. Continue fluconazole oral to complete 2 weeks. Referrals: Rodrick Vázquez MD [Primary Care Provider] - (Patient will follow up with the PCP at the [facility]) Prescriptions: Fluconazole [Diflucan] 100 mg PO DAILY #14 tablet Furosemide [Lasix] 20 mg PO DAILY #30 tablet Guaifenesin [Mucinex] 1,200 mg PO BID #30 tab.er.12h Omeprazole [PriLOSEC] 40 mg PO DAILY #30 capsule.
--- NOTE | 2016-11-09 17:18 | Internal Med Progress Note ---
Date of Encounter: 11/09/16 Time of Encounter: 17:16 - Assessment and plan (1) Healthcare associated bacterial pneumonia Current Visit: No Status: Acute Assessment and plan: 11/09/2016 completed abx repeat blood cultures: no growth clinically stable medically clear awaiting hospice evaluation Patient has completed appropriate antibiotics Repeat blood culture pending 11/05/16 stable 11/04/16 Metabolic encephalopathy secondary to sepsis due to healthcare associated pneumonia present upon admission/MRSA pneumonia, history of MRSA in sputum, also positive for Mela (not albicans) in his urine culture Continue fluconazole day 4. WIll continue outpatient for total 14 days. Chest x-ray shows a retrocardiac opacity. Finished 8 days of abx with vancomycin and cefepime. 1 out of 2 bottles of his blood cultures are growing possible MRSA, unlikely bacteremia, possible contamination of the blood culture. 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 VRE las time was sensitive to ampicillin, consider starting ampicillin or gentamicin if worse, was also sensitive to nitrofurantoin Current urine culture shows mixed lenny unable to identify. High risk due to sepsis History of diabetes type 2 insulin-dependent, CAD/CABG 3, CKD3, multiple CVAs TIAs, history of bladder carcinoma, indwelling suprapubic catheter and now has a urostomy bag, chronic recurrent urinary tract infections, chronic systolic CHF with an ejection fraction less than 25% (2) Chronic systolic heart failure Current Visit: No Status: Chronic Assessment and plan: ECHO with EF 45-50% Continue Lasix (3) Diabetes mellitus Current Visit: No Status: Chronic Assessment and plan: Controlled. Continue insulin sliding scale Qualifiers: Diabetes mellitus type: type 2 Diabetes mellitus complication status: with hyperglycemia Diabetes mellitus terminal carman insulin use: with care home use Qualified Code(s): E11.65 - Type 2 diabetes mellitus with hyperglycemia; Z79.4 - [facility]CF (current) use of insulin (4) Generalized weakness Current Visit: No Status: Acute - Subjective Interval history: seen and examined no new complaints - Constitutional Vitals: Temp Pulse Resp BP Pulse Ox 97.8 F 63 14 95/51 96 11/09/16 15:40 11/09/16 15:40 11/09/16 15:40 11/09/16 15:40 11/09/16 15:40 General appearance: Present: cachectic, disheveled, A&O X 3, pleasant, answers questions appropriately - Head Head exam: Present: atraumatic, normocephalic - Eye Eye exam: Present: PERRL, conjuntiva pink, sclera anicteric Pupils: Present: PERRL - Neck Neck exam general surgery: Present: supple, trachea midline. Absent: lymphadenopathy - Respiratory Respiratory exam: Present: CTAB. Absent: accessory muscle use, rales, rhonchi, wheezes - Cardiovascular Cardiovascular exam: Present: RRR, +S1, +S2. Absent: diastolic murmur, gallop, rubs, systolic murmur - GI/Abdominal GI/Abdominal exam: Present: normal bowel sounds, soft, no peritoneal signs. Absent: distended, tenderness - Extremities Exam Extremities exam: Present: warm, radial pulses palpable and symetrical. Absent : calf tenderness, cyanotic, pedal edema - Neurological Exam Neurological exam: Present: CN II-XII intact, oriented X3, no focal deficits. Absent: pronater drift, facial droop, speech deficit - Skin Skin exam: Present: dry, intact Internal Medicine: Result - Labs CBC & Chem 7: 11/09/16 06:55 11/09/16 06:55 Labs: Short CBC 11/09/16 Range/Units 06:55 WBC 7.7 (4.3-11.1) K/mcL Hgb 7.5 L (12.9-16.9) g/dL Hct 23.4 L (37.5-50.1) % Plt Count 366 (140-400) K/mcL Neutrophils # 5.0 (1.6-8.9) K/mcL BMP 11/09/16 06:55 Sodium 137 Potassium 4.4 Chloride 105 Carbon Dioxide 21 BUN 25 Creatinine 1.27 H Glucose 379 H Calcium 8.3 L - VTE Documentation of Mechanical Device: Intermittent pneumatic compression device Consult Discharge Plan - Plan Instructions: Furosemide (By mouth), Decongestant/Expectorant (By mouth), Omeprazole (By mouth), Fluconazole (By mouth), Urinary Tract Infection in Men ( DC), Anemia (GEN), Pneumonia (DC) Additional Instructions: Follow with primary care physician within the next 7 days. Complete doses of cefepime for 3 more days and vancomycin IV for 2 more days. Continue fluconazole oral to complete 2 weeks. Referrals: Rodrick Vázquez MD [Primary Care Provider] - (Patient will follow up with the PCP at the [facility]) Prescriptions: Fluconazole [Diflucan] 100 mg PO DAILY #14 tablet Furosemide [Lasix] 20 mg PO DAILY #30 tablet Guaifenesin [Mucinex] 1,200 mg PO BID #30 tab.er.12h Omeprazole [PriLOSEC] 40 mg PO DAILY #30 capsule.
[2016-11-09] MEDS: Insulin DETEMIR 100 UNIT/ML X5UNITS SQ SCH (22:35)
[2016-11-10] MEDS: 0.9 % Sodium Chloride 1,000 ML IVC SCH (04:18)
[2016-11-10] MEDS: Gabapentin 100 MG CAPSULE PO SCH ×3 (08:54→21:46)
[2016-11-10] MEDS: Furosemide 20 MG TABLET PO SCH (08:54)
[2016-11-10] MEDS: Aspirin Enteric Coated 81 MG Tablet PO SCH (08:54)
[2016-11-10] MEDS: Fluconazole 100 MG TABLET PO SCH (08:54)
[2016-11-10] MEDS: Lactobacillus 1 EACH CAP.SPRINK PO SCH ×2 (08:55→21:45)
[2016-11-10] MEDS: Insulin LISPRO 300 UNITS/3 ML VIAL SQ SCH ×4 (08:55→21:46)
--- NOTE | 2016-11-10 14:23 | Palliative Progress Note ---
Date of Encounter: 11/10/16 Time of Encounter: 14:18 - Assessment and plan (1) Goals of care, counseling/discussion Current Visit: Yes Status: Acute Assessment and plan: Patient's daughter had information session with [facility] staff per her request. Current plan for discharge is to return to the home tomorrow with [facility] services. Patient will initiate Medicaid application tomorrow. Future plans to transition to [facility] for long-term care once Medicaid is approved. Upon discharge, the patient will need prescriptions for oral morphine concentrate and lorazepam in case of emergency. Equivalent will be delivered following discharge including over the bed table and bedside commode. Requests were made to the instructional material director [place] hospice nurse Filippo Redd. human services manager will continue to follow. State DNR form on chart. (2) Community acquired pneumonia Current Visit: Yes Status: Acute Assessment and plan: Stable (3) Failure to thrive Current Visit: Yes Status: Acute Assessment and plan: Encourage meals, Ensure, food of choice. Qualifiers: Failure to thrive age range: in adult Qualified Code(s): R62.7 - Adult failure to thrive - Time Spent With Patient Total time spent is greater than 50% in coordination of care (as documented) at patient's floor/unit and/or counseling patient: - Subjective Interval history: Mr. Herron is lying in bed with family at bedside. His affect has improved, and he was able to eat some lunch that his daughter brought from an outside restaurant. Mr. Herron reports breathing is near baseline. He continues to affirm generalized overall weakness. - Constitutional Vitals: Abnormal lab results RBC 2.60 M/mcL (4.19-5.50) L 11/09/16 06:55 Hgb 7.5 g/dL (12.9-16.9) L 11/09/16 06:55 Hct 23.4 % (37.5-50.1) L 11/09/16 06:55 RDW 14.9 % (11.5-14.5) H 11/09/16 06:55 Creatinine 1.27 mg/dL (0.72-1.25) H 11/09/16 06:55 Est GFR (Non-Af Amer) 54 (> 60) L 11/09/16 06:55 Glucose 379 mg/dL (70-99) H 11/09/16 06:55 POC Glucose 212 (58-89) H 11/10/16 12:04 Calculated Osmolality 304 (280-300) H 11/09/16 06:55 Calcium 8.3 mg/dL (8.6-10.8) L 11/09/16 06:55 C-Reactive Protein 240 mg/L (Less than 5) H 10/28/16 15:20 B-Natriuretic Peptide 169 pg/mL (0-100) H 10/29/16 06:19 Urine Clarity Turbid (Clear) A 10/30/16 09:15 Urine Protein 30 mg/dL (Neg-Trace) H 10/30/16 09:15 Ur Leukocyte Esterase Moderate (Negative) H 10/30/16 09:15 Urine Microscopic WBC 30-50 per hpf (0-3) H 10/30/16 09:15 Urine Bacteria Many per hpf (None-Few) H 10/30/16 09:15 Granular Casts Few per lpf (None Seen) H 10/30/16 09:15 Urine Yeast Moderate per hpf (None Seen) H 10/30/16 09:15 Ur Culture Indicated? YES (NO) A 10/30/16 09:15 Vancomycin Trough 23.6 mcg/mL (10-20) H* 11/04/16 18:22 Staphylococcus sp PCR DETECTED (Not Detect) A 10/28/16 15:20 MRS (TEM-PCR) DETECTED (Not Detect) A 10/28/16 15:20 General appearance: Present: cooperative, no acute distress Exam: 81-year-old male patient, cachectic, global weakness - ENT ENT exam: Present: mucous membranes moist - Respiratory Respiratory exam: Present: decreased breath sounds. Absent: accessory muscle use, prolonged expiratory phase, respiratory distress, tachypnea - Cardiovascular Cardiovascular exam: Present: RRR - GI/Abdominal GI/Abdominal exam: Present: soft. Absent: tenderness - Extremities Exam Extremities exam: Absent: pedal edema - Neurological Exam Neurological exam: Present: alert, oriented X3, strengths equal and symetr throughout (Global weakness) - Psychiatric Psychiatric exam: Absent: agitated, anxious - Skin Skin exam: Present: dry, warm Palliative Quality Palliative Quality: Screen for Code Status: Yes, Screen for Goals of Care: Yes, Screen for Pain: Yes, If Pain Regimen Started, Initiate Bowel Regimen: Yes, Screen for Nausea/Vomitting: Yes Code Status: 10/28/16 21:49 Resuscitation Status: Active [RES] Routine Comment: Resuscitation Status: DNR-Comfort Care - Labs CBC & Chem 7: 11/09/16 06:55 11/09/16 06:55 Labs: Laboratory Results - last 24 hr 11/08/16 11/09/16 11/09/16 21:32 15:46 21:23 POC Glucose 234 H 165 H 277 H 11/10/16 12:04 POC Glucose 212 H Consult Discharge Plan - Plan Instructions: Furosemide (By mouth), Decongestant/Expectorant (By mouth), Omeprazole (By mouth), Fluconazole (By mouth), Urinary Tract Infection in Men ( DC), Anemia (GEN), Pneumonia (DC) Additional Instructions: Follow with primary care physician within the next 7 days. Complete doses of cefepime for 3 more days and vancomycin IV for 2 more days. Continue fluconazole oral to complete 2 weeks. Referrals: Rodrick Vázquez MD [Primary Care Provider] - (Patient will follow up with the PCP at the [facility]) Prescriptions: Fluconazole [Diflucan] 100 mg PO DAILY #14 tablet Furosemide [Lasix] 20 mg PO DAILY #30 tablet Guaifenesin [Mucinex] 1,200 mg PO BID #30 tab.er.12h Omeprazole [PriLOSEC] 40 mg PO DAILY #30 capsule.
--- NOTE | 2016-11-10 14:36 | Internal Med Progress Note ---
Date of Encounter: 11/10/16 Time of Encounter: 14:33 - Assessment and plan (1) Healthcare associated bacterial pneumonia Current Visit: No Status: Acute Assessment and plan: 11/10/2016 clinically stable medically clear awaiting hospice evaluation 11/09/2016 completed abx repeat blood cultures: no growth clinically stable medically clear awaiting hospice evaluation Patient has completed appropriate antibiotics Repeat blood culture pending 11/05/16 stable 11/04/16 Metabolic encephalopathy secondary to sepsis due to healthcare associated pneumonia present upon admission/MRSA pneumonia, history of MRSA in sputum, also positive for Mela (not albicans) in his urine culture Continue fluconazole day 4. WIll continue outpatient for total 14 days. Chest x-ray shows a retrocardiac opacity. Finished 8 days of abx with vancomycin and cefepime. 1 out of 2 bottles of his blood cultures are growing possible MRSA, unlikely bacteremia, possible contamination of the blood culture. 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 VRE las time was sensitive to ampicillin, consider starting ampicillin or gentamicin if worse, was also sensitive to nitrofurantoin Current urine culture shows mixed lenny unable to identify. High risk due to sepsis History of diabetes type 2 insulin-dependent, CAD/CABG 3, CKD3, multiple CVAs TIAs, history of bladder carcinoma, indwelling suprapubic catheter and now has a urostomy bag, chronic recurrent urinary tract infections, chronic systolic CHF with an ejection fraction less than 25% (2) Chronic systolic heart failure Current Visit: No Status: Chronic Assessment and plan: ECHO with EF 45-50% Continue Lasix (3) Diabetes mellitus Current Visit: No Status: Chronic Assessment and plan: Controlled. Continue insulin sliding scale Qualifiers: Diabetes mellitus type: type 2 Diabetes mellitus complication status: with hyperglycemia Diabetes mellitus fci insulin use: with termite helper use Qualified Code(s): E11.65 - Type 2 diabetes mellitus with hyperglycemia; Z79.4 - correction (current) use of insulin (4) Generalized weakness Current Visit: No Status: Acute - Subjective Interval history: seen and examined no new complaints 11/10/2016 seen and examined. no new complaints - Constitutional Vitals: Temp Pulse Resp BP Pulse Ox 97.3 F L 59 18 108/60 95 11/10/16 11:59 11/10/16 11:59 11/10/16 11:59 11/10/16 11:59 11/10/16 11:59 General appearance: Present: cachectic, disheveled, A&O X 3, pleasant, answers questions appropriately - Head Head exam: Present: atraumatic, normocephalic - Eye Eye exam: Present: PERRL, conjuntiva pink, sclera anicteric Pupils: Present: PERRL - Neck Neck exam general surgery: Present: supple, trachea midline. Absent: lymphadenopathy - Respiratory Respiratory exam: Present: CTAB. Absent: accessory muscle use, rales, rhonchi, wheezes - Cardiovascular Cardiovascular exam: Present: RRR, +S1, +S2. Absent: diastolic murmur, gallop, rubs, systolic murmur - GI/Abdominal GI/Abdominal exam: Present: normal bowel sounds, soft, no peritoneal signs. Absent: distended, tenderness - Extremities Exam Extremities exam: Present: warm, radial pulses palpable and symetrical. Absent : calf tenderness, cyanotic, pedal edema - Neurological Exam Neurological exam: Present: CN II-XII intact, oriented X3, no focal deficits. Absent: pronater drift, facial droop, speech deficit - Skin Skin exam: Present: dry, intact Internal Medicine: Result - Labs CBC & Chem 7: 11/09/16 06:55 11/09/16 06:55 - VTE Documentation of Mechanical Device: Intermittent pneumatic compression device Consult Discharge Plan - Plan Instructions: Furosemide (By mouth), Decongestant/Expectorant (By mouth), Omeprazole (By mouth), Fluconazole (By mouth), Urinary Tract Infection in Men ( DC), Anemia (GEN), Pneumonia (DC) Additional Instructions: Follow with primary care physician within the next 7 days. Complete doses of cefepime for 3 more days and vancomycin IV for 2 more days. Continue fluconazole oral to complete 2 weeks. Referrals: Rodrick Vázquez MD [Primary Care Provider] - (Patient will follow up with the PCP at the [facility]) Prescriptions: Fluconazole [Diflucan] 100 mg PO DAILY #14 tablet Furosemide [Lasix] 20 mg PO DAILY #30 tablet Guaifenesin [Mucinex] 1,200 mg PO BID #30 tab.er.12h Omeprazole [PriLOSEC] 40 mg PO DAILY #30 capsule.
[2016-11-10] MEDS: Insulin DETEMIR 100 UNIT/ML X5UNITS SQ SCH (21:45)
[2016-11-11] MEDS: 0.9 % Sodium Chloride 1,000 ML IVC SCH (01:26)
[2016-11-11] MEDS: Furosemide 20 MG TABLET PO SCH (08:26)
[2016-11-11] MEDS: Lactobacillus 1 EACH CAP.SPRINK PO SCH (08:26)
[2016-11-11] MEDS: Fluconazole 100 MG TABLET PO SCH (08:26)
[2016-11-11] MEDS: Gabapentin 100 MG CAPSULE PO SCH ×2 (08:27→16:26)
[2016-11-11] MEDS: Insulin LISPRO 300 UNITS/3 ML VIAL SQ SCH ×2 (08:27→11:33)
[2016-11-11] MEDS: Aspirin Enteric Coated 81 MG Tablet PO SCH (08:28)
--- NOTE | 2016-11-11 09:47 | Palliative Progress Note ---
Date of Encounter: 11/11/16 Time of Encounter: 09:45 - Assessment and plan (1) Goals of care, counseling/discussion Current Visit: Yes Status: Acute Assessment and plan: Patient's daughter had information session with [facility] hosp[facility] staff. Current plan for discharge is to return to the home with [facility] hosp[facility] services today. Patient will initiate Medicaid application upon discharge. Future plans to transition to [facility] for long-term care once Medicaid is in place. Upon discharge, the patient will need prescriptions for oral morphine concentrate and lorazepam in case of emergency. Equipment will be delivered following discharge including: over the bed table and bedside commode. student services director will continue to follow. State DNR form on chart. Rx for hospice medications completed and on the chart, faxed to pharmacy. (2) Community acquired pneumonia Current Visit: Yes Status: Acute Assessment and plan: Stable (3) Failure to thrive Current Visit: Yes Status: Acute Assessment and plan: Encourage meals, Ensure, food of choice. Qualifiers: Failure to thrive age range: in adult Qualified Code(s): R62.7 - Adult failure to thrive (4) Physical deconditioning Current Visit: Yes Status: Acute Assessment and plan: Physical therapy. Will seek approval from hospice services for short term home PT (2 weeks). - Time Spent With Patient Total time spent is greater than 50% in coordination of care (as documented) at patient's floor/unit and/or counseling patient: - Subjective Interval history: Mr. Herron is lying in bed with family at bedside. His affect has improved, and he was able to eat some lunch that his daughter brought from an outside restaurant. Mr. Herron reports breathing is near baseline. He continues to affirm generalized overall weakness. - Constitutional Vitals: Abnormal lab results RBC 2.60 M/mcL (4.19-5.50) L 11/09/16 06:55 Hgb 7.5 g/dL (12.9-16.9) L 11/09/16 06:55 Hct 23.4 % (37.5-50.1) L 11/09/16 06:55 RDW 14.9 % (11.5-14.5) H 11/09/16 06:55 Creatinine 1.27 mg/dL (0.72-1.25) H 11/09/16 06:55 Est GFR (Non-Af Amer) 54 (> 60) L 11/09/16 06:55 Glucose 379 mg/dL (70-99) H 11/09/16 06:55 POC Glucose 243 (58-89) H 11/10/16 20:56 Calculated Osmolality 304 (280-300) H 11/09/16 06:55 Calcium 8.3 mg/dL (8.6-10.8) L 11/09/16 06:55 C-Reactive Protein 240 mg/L (Less than 5) H 10/28/16 15:20 B-Natriuretic Peptide 169 pg/mL (0-100) H 10/29/16 06:19 Urine Clarity Turbid (Clear) A 10/30/16 09:15 Urine Protein 30 mg/dL (Neg-Trace) H 10/30/16 09:15 Ur Leukocyte Esterase Moderate (Negative) H 10/30/16 09:15 Urine Microscopic WBC 30-50 per hpf (0-3) H 10/30/16 09:15 Urine Bacteria Many per hpf (None-Few) H 10/30/16 09:15 Granular Casts Few per lpf (None Seen) H 10/30/16 09:15 Urine Yeast Moderate per hpf (None Seen) H 10/30/16 09:15 Ur Culture Indicated? YES (NO) A 10/30/16 09:15 Vancomycin Trough 23.6 mcg/mL (10-20) H* 11/04/16 18:22 Staphylococcus sp PCR DETECTED (Not Detect) A 10/28/16 15:20 MRS (TEM-PCR) DETECTED (Not Detect) A 10/28/16 15:20 General appearance: Present: cooperative, no acute distress Exam: 81 year old male patient, cachectic, resting in bed. - ENT ENT exam: Present: mucous membranes moist - Respiratory Respiratory exam: Absent: accessory muscle use, respiratory distress - Additional comments: catheter - Extremities Exam Extremities exam: Absent: normal inspection (poor muscle tone) - Neurological Exam Neurological exam: Present: alert, strengths equal and symetr throughout - Psychiatric Psychiatric exam: Absent: agitated, anxious - Skin Skin exam: Present: dry, warm Palliative Quality Palliative Quality: Screen for Code Status: Yes, Screen for Goals of Care: Yes, Screen for Pain: Yes, If Pain Regimen Started, Initiate Bowel Regimen: Yes, Screen for Nausea/Vomitting: Yes Code Status: 10/28/16 21:49 Resuscitation Status: Active [RES] Routine Comment: Resuscitation Status: DNR-Comfort Care - Labs CBC & Chem 7: 11/09/16 06:55 11/09/16 06:55 Labs: Laboratory Results - last 24 hr 11/10/16 11/10/16 11/10/16 07:23 12:04 17:03 POC Glucose 167 H 212 H 218 H 11/10/16 20:56 POC Glucose 243 H Consult Discharge Plan - Plan Instructions: Furosemide (By mouth), Decongestant/Expectorant (By mouth), Omeprazole (By mouth), Fluconazole (By mouth), Urinary Tract Infection in Men ( DC), Anemia (GEN), Pneumonia (DC) Additional Instructions: Follow with primary care physician within the next 7 days. Complete doses of cefepime for 3 more days and vancomycin IV for 2 more days. Continue fluconazole oral to complete 2 weeks. Referrals: Rodrick Vázquez MD [Primary Care Provider] - (Patient will follow up with the PCP at the [facility]) Prescriptions: Morphine Oral CONC [Roxanol] 5 mg PO Q2HR PRN #15 ml PRN Reason: pain or shortness of breath LORazepam [Ativan] 0.5 mg PO Q4HR PRN #10 tablet PRN Reason: anxiety/agitation LORazepam Oral Conc [Ativan Oral Conc] 1 mg PO Q6HR PRN #15 mls PRN Reason: anxiety/agitation Fluconazole [Diflucan] 100 mg PO DAILY #14 tablet Furosemide [Lasix] 20 mg PO DAILY #30 tablet Guaifenesin [Mucinex] 1,200 mg PO BID #30 tab.er.12h Omeprazole [PriLOSEC] 40 mg PO DAILY #30 capsule.
--- NOTE | 2016-11-11 14:11 | Discharge Summary ---
Date of Encounter: 11/11/16 Time of Encounter: 14:08 - Discharge Diagnosis (1) Healthcare associated bacterial pneumonia Priority: Primary Status: Acute (2) Chronic systolic heart failure Priority: Primary Status: Chronic (3) Diabetes mellitus Priority: Secondary Status: Chronic Qualifiers: Diabetes mellitus type: type 2 Diabetes mellitus complication status: with hyperglycemia Diabetes mellitus care home insulin use: with care home use Qualified Code(s): E11.65 - Type 2 diabetes mellitus with hyperglycemia; Z79.4 - MCFP (current) use of insulin (4) Generalized weakness Priority: Secondary Status: Acute (5) Failure to thrive Priority: Secondary Status: Acute Qualifiers: Failure to thrive age range: in adult Qualified Code(s): R62.7 - Adult failure to thrive (6) Physical deconditioning Priority: Secondary Status: Acute (7) Brain lesion Priority: Secondary Status: Acute - Discharge Medications Prescriptions: Furosemide [Lasix] 20 mg PO DAILY #30 tablet Guaifenesin [Mucinex] 1,200 mg PO BID #30 tab.er.12h Omeprazole [PriLOSEC] 40 mg PO DAILY #30 capsule.dr Home Medications: Aspirin [Adult Low Dose Aspirin EC] 81 mg PO DAILY 10/16/15 [History] Atorvastatin [Lipitor] 40 mg PO HS 10/16/15 [History] Clopidogrel [Plavix] 75 mg PO DAILY #30 tablet 04/18/16 [Rx] Gabapentin [Neurontin] 300 mg PO TID PRN 06/12/16 [History] Insulin ASPART [Novolog Flexpen] 5 - 10 unit SQ TIDAC 06/12/16 [History] Lisinopril 2.5 mg PO DAILY 06/12/16 [History] Meclizine HCl [Verticalm] 25 mg PO TID PRN 06/12/16 [History] Benzonatate [Tessalon] 200 mg PO TID PRN #0 capsule 06/20/16 [Rx] Insulin DETEMIR [Levemir] 10 unit SQ HS [id number] 06/20/16 [Rx] Carvedilol 3.125 mg PO BID 08/09/16 [History] Metformin [Glucophage] 1,000 mg PO BIDWM 08/09/16 [History] Polyethylene Glycol 3350 [MiraLAX] 17 gm PO DAILY PRN 10/28/16 [History] Promethazine [Phenergan] 25 mg PO Q8HR PRN 10/28/16 [History] Furosemide [Lasix] 20 mg PO DAILY #30 tablet 11/01/16 [Rx] Guaifenesin [Mucinex] 1,200 mg PO BID #30 tab.er.12h 11/01/16 [Rx] Omeprazole [PriLOSEC] 40 mg PO DAILY #30 capsule. 11/01/16 [Rx] Allergies/Adverse Reactions: Allergies Sulfa (Sulfonamide Antibiotics) Allergy (Verified 04/13/16 10:53) Rash Date of admission: 10/28/16 23:47 Primary care physician: Rodrick Vázquez MD Consults: 10/29/16 02:55 Consult to Speech Therapy [CONS] Routine Comment: Evaluate, develop and implement POC Reason for Consult: Suspicion for aspiration pneumonia Call Completed: No 10/30/16 08:54 Consult to Occupational Therapy [CONS] Routine Comment: Evaluate, develop and implement POC Consult to Physical Therapy [CONS] Routine Comment: Evaluate, develop and implement POC 10/31/16 07:42 Consult to Assistant Manager Bilingual [CONS] Routine Reason for SW Consult: therapy eval stated needs [facility], per pt wants [facility] 11/08/16 13:07 Consult to Palliative Care [CONS] Routine Comment: Eval for home hospice/palliative, fail to thrive Consulting Provider: Pall[facility] Discharging clinician: Antwan Crowley - Patient Status Disposition: Hospice - Home Condition: Fair Functional capacity at discharge: bed bound Overall status at discharge: patient is not back to baseline - Discharge Instructions Instructions: Furosemide (By mouth), Decongestant/Expectorant (By mouth), Omeprazole (By mouth), Fluconazole (By mouth), Urinary Tract Infection in Men ( DC), Anemia (GEN), Pneumonia (DC) Follow Up With: Rodrick Vázquez MD [Primary Care Provider] - (Patient will follow up with the PCP at the [facility]) Additional Instructions: Follow with primary care physician within the next 7 days. Complete doses of cefepime for 3 more days and vancomycin IV for 2 more days. Continue fluconazole oral to complete 2 weeks. - Diet and Activity Activity: increase activity as tolerated Diet: diabetic diet Interval History: Mr. Herron is a 81 year old male past medical history of systolic heart failure CABG bladder cancer with urostomy hypertension diabetes COPD recurrent pneumonia renal disease TIAs. Currently the patient has been experiencing fatigue a cough with shortness of breath for approximately 4 days. He has had positive stress of pneumonia with most recent hospitalization in August that time he did have MRSA in his sputum. Patient denies any chest pain fevers chills nausea vomiting or diarrhea. He does report anorexia. Is brought to the ER for further workup and evaluation. Cardiovascular records lab work did reveal elevated white count 15.5 potassium is 4.8 creatinine 1.46 bicarbonate 17. Chest x-ray revealed patchy ACDs and retrocardiac left bases atelectasis or pneumonia which is new from prior x-ray. Patient's vital signs he was tachycardic heart rate of 104 low-grade temperature of 99.2 oxygen saturation 95 % howeverSPO2 drop 92%on 2 L nasal cannula Blood cultures were obtained patient was initiated Levaquin. He was admitted for further workup and evaluation. Hospital course: He was hospitalized. He was treated for healthcare associated pneumonia. Patient received altogether 7 days of antibiotics. Patient had a mynor in his urine. Patient was started on fluconazole. Hypertension responded well to the treatment. This is a very frail patient. His family and patient himself decided to opt out off all the treatment. Plan Patient and his family chose to be on hospice. Patient choose [facility]. All the narcotics and benzodiazepine prescriptions given to the patient by palliative care. I prescribed patient 10 days of fluconazole. At the time of discharge patient does not have any questions, concerns, update or suggestions. Patient will be going home and from there he will be transitioned to the hospice. All questions answered - Time Spent with Patient Total time spent providing and/or coordinating discharge services: - Constitutional Vitals: Temp Pulse Resp BP Pulse Ox 98.4 F 66 16 132/68 96 11/11/16 11:09 11/11/16 11:09 11/11/16 11:09 11/11/16 11:09 11/11/16 11:09 General appearance: Present: cachectic, disheveled, A&O X 3, pleasant, answers questions appropriately - Head Head exam: Present: atraumatic, normocephalic - Eye Eye exam: Present: PERRL, conjuntiva pink, sclera anicteric Pupils: Present: PERRL - Neck Neck exam general surgery: Present: supple, trachea midline. Absent: lymphadenopathy - Respiratory Respiratory exam: Present: CTAB. Absent: accessory muscle use, rales, rhonchi, wheezes - Cardiovascular Cardiovascular exam: Present: RRR, +S1, +S2. Absent: diastolic murmur, gallop, rubs, systolic murmur - GI/Abdominal GI/Abdominal exam: Present: normal bowel sounds, soft, no peritoneal signs. Absent: distended, tenderness - Extremities Exam Extremities exam: Present: warm, radial pulses palpable and symetrical. Absent : calf tenderness, cyanotic, pedal edema - Neurological Exam Neurological exam: Present: CN II-XII intact, oriented X3, no focal deficits. Absent: pronater drift, facial droop, speech deficit - Skin Skin exam: Present: dry, intact - VTE Documentation of Mechanical Device: Intermittent pneumatic compression device
--- NOTE | 2016-11-11 14:57 | Event Note ---
Date of Encounter: 11/11/16 Time of Encounter: 14:56 Hospice medical oncologist certification of terminal illness: Hospice benefit. Start: 11/11/2016 Hospice benefit. In: +90 days Palliative performance scale: 30-40% History: Patient with a history of congestive heart failure, with reported ejection fraction on goal of 25%. and requested episodes of pneumonia with hospitalizations (at the least, 2 times in the last 4 months) now desiring no further aggressive treatment. Patient also has a history of declining performance, increasing weight loss and overall failure to thrive. Since the patient has these comorbidities as well as multiple recent hospitalizations for pneumonia for which she wishes no further aggressive care I find that These findings support a life expectancy of 6 months or less. I attest that I have compose the above narrative based on my review of the patient's medical records, and or on my examination of the patient. Robert Duenas M.D. Associate medical customer service representative. [facility]
[2016-11-11 16:09] VITALS: BP 121/78
--- NOTE | 2016-11-11 16:50 | Physician Discharge Referral ---
Home Health/Hosp Referral Info Transfer to: Hospice - Diagnosis (1) Healthcare associated bacterial pneumonia Priority: Primary Status: Acute (2) Chronic systolic heart failure Priority: Primary Status: Chronic (3) Diabetes mellitus Priority: Secondary Status: Chronic (4) Generalized weakness Priority: Secondary Status: Acute (5) Failure to thrive Priority: Secondary Status: Acute (6) Physical deconditioning Priority: Secondary Status: Acute (7) Brain lesion Priority: Secondary Status: Acute - Respiratory Orders Smoking Cessation: Smoking cessation has been advised. For more information, call the [place] Tobacco Quit Line at 3-436-VETI-NOW. - Transfer Medications Prescriptions: Furosemide [Lasix] 20 mg PO DAILY #30 tablet Guaifenesin [Mucinex] 1,200 mg PO BID #30 tab.er.12h Omeprazole [PriLOSEC] 40 mg PO DAILY #[address] capsule[address] Moreno Medications: Aspirin [Adult Low Dose Aspirin EC] 81 mg PO DAILY 10/16/15 [History] Atorvastatin [Lipitor] 40 mg PO HS 10/16/15 [History] Clopidogrel [Plavix] 75 mg PO DAILY #30 tablet 04/18/16 [Rx] Gabapentin [Neurontin] 300 mg PO TID PRN 06/12/16 [History] Insulin ASPART [Novolog Flexpen] 5 - 10 unit SQ TIDAC 06/12/16 [History] Lisinopril 2.5 mg PO DAILY 06/12/16 [History] Meclizine HCl [Verticalm] 25 mg PO TID PRN 06/12/16 [History] Benzonatate [Tessalon] 200 mg PO TID PRN #0 capsule 06/20/16 [Rx] Insulin DETEMIR [Levemir] 10 unit SQ HS [id number] 06/20/16 [Rx] Carvedilol 3.125 mg PO BID 08/09/16 [History] Metformin [Glucophage] 1,000 mg PO BIDWM 08/09/16 [History] Polyethylene Glycol 3350 [MiraLAX] 17 gm PO DAILY PRN 10/28/16 [History] Promethazine [Phenergan] 25 mg PO Q8HR PRN 10/28/16 [History] Furosemide [Lasix] 20 mg PO DAILY #30 tablet 11/01/16 [Rx] Guaifenesin [Mucinex] 1,200 mg PO BID #30 tab.er.12h 11/01/16 [Rx] Omeprazole [PriLOSEC] 40 mg PO DAILY #30 capsule. 11/01/16 [Rx] Allergies/Adverse Reactions: Allergies Sulfa (Sulfonamide Antibiotics) Allergy (Verified 04/13/16 10:53) Rash Certification: Further, I certify that my clinical findings support that this patient is homebound (i.e. absences from home require considerable and taxing effort and are for medical reasons or jainism services or infrequently or short duration when for other reasons) because: this is hospice referral Homebound Reason: Patient requires assistance of a person or device to safely leave home Attestation: My signature below is to certify that this patient is under my care and that I, or nurse practitioner, or a physician's procurement assistant working with me, has a face-to -face encounter with this patient.
== END 2016-11-11 17:41 | disposition hospice, home (50) | DRG 871 ==
LOC: EMEROO 15:02 → 2ANU 15:02 → SUATTDRO 23:47
PROVIDERS: ADMIT Nurse Practitioner Acute Care; ATTEND Internal Medicine